=== PATIENT | male | born 1935 | race Caucasian/White ===

== ENCOUNTER → 2016-06-13 | Outpatient (CLI) | payer MEDICARE ==
[2016-06-13 09:16] LABS: Blood Urea Nitrogen 23 mg/dL (9-20); Non-African American GFR(MDRD) >60 (>60 ml/min/1.73 sqM)
--- NOTE | 2016-06-13 09:59 | CT ---
EXAMINATION TYPE: CT chest w con DATE OF EXAM: 06/13/2016 9:34 AM COMPARISON: 11/17/2015 HISTORY: 81-year-old male follow-up Lung CA TECHNIQUE: Contiguous axial scanning of the chest after the administration of 100 ml mL of Omnipaque 300. Coronal/sagittal reconstructions performed. CT DLP: 610mGycm. Automatic exposure control utilized for a dose reduction. FINDINGS: Heart is normal size without pericardial effusion. Coronary vessel calcifications are present in samara rkable for coronary artery disease. Ascending aorta measures at the upper limits of normal in caliber at 3.6 cm. Ectasia of the upper trupti cending thoracic aorta as well as 3.1 cm. Moderate atherosclerotic arch calcifications with conventio nal arch vessel branching anatomy. Scattered nonenlarged mediastinal lymph nodes are unchanged. No thoracic lymphadenopathy by CT size c riteria. Evaluation of the lungs shows prior left upper lobectomy. Some minimal atelectasis or scarring at the medial right middle lobe is unchanged. No consolidation or pleural effusion. Small hiatal hernia. Heterogeneous low-density mass within the left adrenal gland measures 3.8 cm an d is not significantly changed. Partially visualized cyst medial left kidney measures 3.1 cm, also no t significantly changed. Tiny hilar splenule and moderate stool burden. Bones: Moderate endplate spondylosis mid to lower thoracic spine. Old healed fracture deformity left lateral third rib. No osseous destructive process. IMPRESSION: 1. Status post left upper lobectomy. No evidence for recurrent or metastatic disease. 2. A 3.8 cm left adrenal gland mass is stable. Stability suggests an adrenal adenoma.
== END | disposition home or self-care (01) ==
LOC: RADCTMAIN 08:45
PROVIDERS: ATTEND Internal Medicine Hematology & Oncology
DX: C34.90 Malignant neoplasm of unspecified part of unspecified bronchus or lung (principal); Z90.2 Acquired absence of lung [part of]
CPT/HCPCS: 82565; 84520; 71260; 36415; Q9967

== ENCOUNTER → 2016-09-18 | Outpatient (CLI) | payer MEDICARE ==
[2016-09-18 10:38] LABS: Basophils % (A) 1 %; CH 31.1; Eosinophils # (A) 0.2 k/uL (0-0.7); Eosinophils % (A) 3 %; HCT 47.5 % (39.0-53.0); HDW 2.59; HGB 15.9 gm/dL (13.0-17.5); Luc # (Auto) 0.11; Luc % (Auto) 2; Lymphocytes # (A) 1.7 k/uL (1.0-4.8); Lymphocytes % (A) 23 %; MCH 29.9 pg (25.0-35.0); MCHC 33.6 g/dL (31.0-37.0); MCV 89.2 fL (80.0-100.0); Monocytes # (A) 0.6 k/uL (0-1.0); Monocytes % (A) 8 %; Neutrophils # (A) 4.9 k/uL (1.3-7.7); Neutrophils % (A) 65 %; RBC 5.32 m/uL (4.30-5.90); RDW 12.8 % (11.5-15.5); WBC 7.5 k/uL (3.8-10.6); WBC (Perox) 7.15
[2016-09-18 10:58] LABS: ALT 31 U/L (21-72); AST 18 U/L (17-59); Alkaline Phosphatase 67 U/L (38-126); Anion Gap 9 mmol/L; Blood Urea Nitrogen 22 mg/dL (9-20); Calcium 9.3 mg/dL (8.4-10.2); Carbon Dioxide 27 mmol/L (22-30); Chloride 104 mmol/L (98-107); Cholesterol 184 mg/dL (<200); Glucose 110 mg/dL (74-99); HDL Cholesterol 60 mg/dL (40-60); Non-African American GFR(MDRD) >60 (>60 ml/min/1.73 sqM); Potassium 4.8 mmol/L (3.5-5.1); Sodium 140 mmol/L (137-145); Total Bilirubin 0.7 mg/dL (0.2-1.3); Total Protein 6.8 g/dL (6.3-8.2); Triglycerides 92 mg/dL (<150)
== END | disposition home or self-care (01) ==
LOC: LABWHC1 10:05
PROVIDERS: ATTEND Family Medicine
DX: E55.9 Vitamin D deficiency, unspecified (principal); E78.5 Hyperlipidemia, unspecified
CPT/HCPCS: 36415; 80053; 80061; 82306; 84443; 85025

== ENCOUNTER → 2016-12-26 | Outpatient (CLI) | payer MEDICARE ==
[2016-12-26 18:25] LABS: Blood Urea Nitrogen 26 mg/dL (9-20); Non-African American GFR(MDRD) >60 (>60 ml/min/1.73 sqM)
--- NOTE | 2016-12-26 22:12 | CT ---
EXAMINATION TYPE: CT abdomen pelvis w con DATE OF EXAM: 12/26/2016 COMPARISON: Prior nuclear medicine PET/CT 05/22/2015 HISTORY: History of lung cancer. Generalized abdominal pain x [address] DLP: 943.60 mGycm Automated exposure control for dose reduction was used. TECHNIQUE: Helical acquisition of images from the lung bases through the pelvis have been completed. CONTRAST: Performed with Oral Contrast and with IV Contrast, patient injected with 100 mL of Omnipaque 300. FINDINGS: LUNG BASES: No significant abnormality is appreciated. AORTA: No significant abnormality is appreciated. LIVER/GB: Liver shows low attenuation possibly due to hepatic steatosis, gallbladder is normal PANCREAS: No significant abnormality is seen. SPLEEN: No significant abnormality is seen. ADRENALS: Low dense left adrenal mass is again noted and is stable. KIDNEYS: Cortical cyst is stable kidney. REPRODUCTIVE ORGANS: Prostate is enlarged BOWEL: Some scattered diverticular change in the descending and sigmoid colon. No bowel obstruction. FREE AIR: No Free Air visible. ASCITES: None visible. PELVIC ADENOPATHY: None visualized. RETROPERITONEAL ADENOPATHY: No Retroperitoneal Adenopathy visible. URINARY BLADDER: No significant abnormality is seen. OSSEOUS STRUCTURES: No significant abnormality is seen. IMPRESSION: NO SIGNIFICANT ABNORMALITY EVIDENT TO ACCOUNT FOR PATIENT'S SYMPTOMS. ADDITIONAL NONSPECIFIC FINDINGS ABOVE.
== END | disposition home or self-care (01) ==
LOC: RADCTMAIN 17:47
PROVIDERS: ATTEND Internal Medicine Hematology & Oncology
DX: C34.90 Malignant neoplasm of unspecified part of unspecified bronchus or lung (principal); R10.32 Left lower quadrant pain
CPT/HCPCS: 82565; 84520; 74177; 36415; Q9967

== ENCOUNTER → 2017-06-26 | Outpatient (CLI) | payer MEDICARE ==
[2017-06-26 12:37] LABS: Blood Urea Nitrogen 25 mg/dL (9-20)
--- NOTE | 2017-06-26 15:55 | CT ---
EXAMINATION TYPE: CT neck chest w con DATE OF EXAM: 06/26/2017 1:23 PM COMPARISON: 06/13/2016 HISTORY: Sore neck and follow up of lung cancer CT DLP: 1607 mGycm Automated exposure control for dose reduction was used. CONTRAST: CT scan of the neck and chest were performed following with IV Contrast, patient injected with 100 mL of Omnipaque 300. Axial images are obtained, coronal and sagittal reformatted images are reviewed. FINDINGS: Lungs: Minimal left hemithorax volume loss is seen from a left upper lobectomy with surgical sutures at the mediastinal border. No new pulmonary nodules, pleural effusion, or focal consolidation is seen . Minimal bibasilar subsegmental dependent atelectasis is noted. Mediastinum: Moderate calcific atheromatous changes are seen of the thoracic aorta and coronary arter ies. Heart is not enlarged. There is no ascending or descending thoracic aortic aneurysm. Main pulmon raysa artery is within normal limits of size. No mediastinal, axillary, or internal mammary adenopathy is seen. Airway: Supraglottic and infraglottic airway are patent. Valleculae and piriform sinuses are symmetri c. True and false vocal cords are unremarkable.. Parotid/submandibular glands: No gross abnormality seen. Carotid/Vascular Structures: Minimal nonhemodynamically significant atherosclerosis and stenosis is s een of the bilateral common carotid arteries of less than 25% stenosis. No ostial stenosis is seen. C ommon carotid arteries are patent bilaterally as are the visualized portions of the internal carotid arteries. Vertebral arteries are patent and nearly codominant with the left slightly larger than the right. Other: There is generalized decreased attenuation of the hepatic parenchyma in comparison to that of the spleen suggesting mild hepatic steatosis. 3.8 cm stable left adrenal gland nodule is unchanged an d again favored to represent a benign adrenal gland adenoma. Partially visualized exophytic 3.1 cm le ft renal cyst is seen. Mild to moderate multilevel degenerative changes of the visualized thoracolumb ar spine are present. Thyroid gland is unremarkable. No supraclavicular adenopathy. Moderate multilevel degenerative disc disease is seen of the cervical spine with small posterior disc osteophyte complex versus small disc herniation at C3-C4 resulting in mild spinal canal stenosis. At C2-C3 there is mild left neural foraminal narrowing from uncovertebral hypertrophy and facet arthrop athy. At C3-C4 there is mild bilateral neural foraminal narrowing as well as at C5-C6 all due to unco vertebral hypertrophy and facet arthropathy. No evidence of acute cervical spine fracture. Although t here is prominence throughout multiple spinal levels with sclerotic foci of the mid vertebral bodies in the cervical spine and thoracic spine and the confluence of the posterior inferior vertebral vein confluence and additional sclerotic focus is seen more anteriorly at C5 on series 6 image 42 measurin g 4 mm. Is also seen in series 4 image 53. IMPRESSION: 1. Postsurgical changes of the left upper lobectomy with no evidence of recurrence or metastatic dise ase within the chest. 2. 4 mm indeterminate sclerotic focus within the C5 vertebral body for which surveillance is recommen ded. Alternatively this could be evaluated with MR with and without contrast of the cervical spine to evaluate for bone marrow replacing process with enhancement. 3. Posterior disc osteophyte complex versus small disc herniation at C3-C4 resulting in mild spinal c anal stenosis. This would also be better assessed with the above suggested MR. 4. Continued stability of the 3.8 cm left adrenal gland mass, likely representing an adrenal gland ad enoma.
== END | disposition home or self-care (01) ==
LOC: RADCTMAIN 11:45
PROVIDERS: ATTEND Internal Medicine Hematology & Oncology
DX: M54.2 Cervicalgia (principal); C34.90 Malignant neoplasm of unspecified part of unspecified bronchus or lung; Z98.890 Other specified postprocedural states
CPT/HCPCS: 70491; 71260; 82565; 84520

== ENCOUNTER → 2017-07-18 | Outpatient (CLI) | payer MEDICARE ==
--- NOTE | 2017-07-19 07:58 | MR ---
EXAMINATION TYPE: MR cervical spine wo/w con DATE OF EXAM: 07/18/2017 COMPARISON: CT neck and chest 06/26/2017 HISTORY: Lung cancer, abnormal CT TECHNIQUE: Multiplanar, multisequence images of the cervical spine were acquired utilizing 9 mL intravenous Gada vist gadolinium contrast. Diffusion weighted imaging was performed. C2-C3: No evidence for degenerative disc disease. No disc bulge/herniation or protrusion. No Canal stenosis. Foramina are patent bilaterally. C3-C4: There appears to be a central focal disc herniation at this level with moderate anterior theca l sac compression. No cord contact is evident. This is in close approximation with spinal cord. No sp inal canal stenosis present. Uncovertebral joint hypertrophy contributes to severe foraminal stenosis . C4-C5: No focal disc herniation or significant disc bulge is evident. No spinal canal stenosis presen t. Uncovertebral joint hypertrophy is moderate bilateral foraminal stenosis. C5-C6: No focal disc herniation is evident. Some left paracentral focal bulging which may extend into the foramen on the left is present. Correlate for radicular symptoms at this level. Some mild endpla te changes not excluded. No spinal canal stenosis present. Uncovertebral joint hypertrophy is present with mild foraminal narrowing. C6-C7: There is a central focal subligamentous disc herniation with mild anterior thecal sac compress ion. No cord contact is evident. Neural foramen appear patent. No spinal canal stenosis is present. C7-T1: No focal disc herniation or significant disc bulge is evident. No spinal canal stenosis presen t. Uncovertebral joint hypertrophy is present contributing to moderate bilateral foraminal stenosis. No suspicious enhancement is evident. Vertebral body alignment is normal. There is mild disc space na rrowing throughout the cervical spine. IMPRESSION: 1. Central subligamentous disc herniation C6-7 with mild anterior thecal sac compression. 2. Subligamentous disc herniation with moderate anterior thecal sac compression at C3-4. 3. Foraminal stenosis from uncovertebral joint hypertrophy greatest C3-4.
== END | disposition home or self-care (01) ==
LOC: RADMRIMAIN 15:35
PROVIDERS: ATTEND Internal Medicine Hematology & Oncology
DX: C34.90 Malignant neoplasm of unspecified part of unspecified bronchus or lung (principal); M48.02 Spinal stenosis, cervical region; M50.21 Other cervical disc displacement, high cervical region
CPT/HCPCS: 72156; A9581

== ENCOUNTER → 2018-06-13 | Outpatient (CLI) | payer MEDICARE ==
[2018-06-13 12:16] LABS: Blood Urea Nitrogen 31 mg/dL (9-20)
--- NOTE | 2018-06-13 15:03 | CT ---
EXAMINATION TYPE: CT ChestAbdPelvis w con, CT soft tissue neck w con DATE OF EXAM: 06/13/2018 COMPARISON: CT neck and chest 06/26/2017, abdomen pelvis CT 12/26/2016 HISTORY: Lung cancer CT DLP: 2355.0 mGycm Automated exposure control for dose reduction was used. Helical imaging through the neck, chest abdom en and pelvis. CONTRAST: CT scan of the chest, abdomen and pelvis is performed with Oral Contrast and with IV Contrast, patien t injected with 100 ml mL of Isovue 300. FINDINGS: The neck shows normal appearance, there is no evident adenopathy. Skull base is normal. Marshall ivary gland show symmetric appearance. Atheromatous changes are present within the carotid arteries. Supraclavicular locations are unremarkable. LUNGS: The lungs are grossly clear, there is no concerning parenchymal mass or nodule identified. T here is no pleural effusion or pneumothorax seen. The tracheobronchial tree is patent. MEDIASTINUM: There are no greater than 1 cm hilar or mediastinal lymph nodes. No pericardial effusi on is seen. AORTA: No significant abnormality is seen. OTHER: There are coronary artery calcifications.. LIVER/GB: Liver shows low attenuation. Gallbladder is normal. PANCREAS: No significant abnormality is seen. SPLEEN: No significant abnormality is seen. ADRENALS: Left adrenal mass measures 3.2 x 4 x 3.5 cm, right adrenal gland is normal. KIDNEYS: No significant abnormality is seen. REPRODUCTIVE ORGANS: Prostate is enlarged and shows associated calcification. BOWEL: Diverticular changes associated with the colon. Small lipoma associated with the small bowel, axial image 70 FREE AIR: No Free Air visible. ASCITES: None seen. RETROPERITONEAL ADENOPATHY: No retroperitoneal adenopathy is seen. LYMPH NODES: No greater than 1 cm abdominal or pelvic lymph nodes are appreciated. URINARY BLADDER: No significant abnormality is seen. PELVIC ADENOPATHY: None visualized. OSSEOUS STRUCTURES: No significant interval change is seen. IMPRESSION: Essentially stable exam.
== END | disposition home or self-care (01) ==
LOC: RADCTMAIN 11:31 → EDSTATUS 13:00
PROVIDERS: ATTEND Internal Medicine Hematology & Oncology
DX: C34.90 Malignant neoplasm of unspecified part of unspecified bronchus or lung (principal)
CPT/HCPCS: 82565; 84520; 70491; 71260; 74177; 36415; Q9967

== ENCOUNTER → 2018-08-21 | Outpatient (CLI) | payer MEDICARE ==
--- NOTE | 2018-08-22 07:33 | ECHOF ---
Referral Reason:R94.31 abnormal EKG MEASUREMENTS -------- HEIGHT: 167.6 cm WEIGHT: 86.2 kg BP: IVSd: 1.4 cm (0.6 - 1.1) LVIDd: 4.0 cm (3.9 - 5.3) LVPWd: 1.3 cm (0.6 - 1.1) IVSs: 1.8 cm LVIDs: 2.3 cm LVPWs: 1.9 cm Ao Diam: 3.5 cm (2.0 - 3.7) AV Cusp: 2.0 cm (1.5 - 2.6) LA Diam: 3.6 cm (2.7 - 3.8) MV EXCURSION: 15.618 mm (> 18.000) MV EF SLOPE: 47 mm/s (70 - 150) EPSS: 0.6 cm MV E Rbobie: 0.59 m/s MV DecT: 365 ms MV A Robbie: 1.06 m/s MV E/A Ratio: 0.55 RAP: 5.00 mmHg RVSP: 12.51 mmHg FINDINGS -------- Sinus rhythm. This was a technically good study. The left ventricular size is normal. There is moderate concentric left ventricular hypertrophy. O verall left ventricular systolic function is normal with, an EF between 55 - 60 %. The right ventricle is normal in size. The left atrial size is normal. The right atrial size is normal. The aortic valve is trileaflet and appears structurally normal. There is trace mitral regurgitation. Trace tricuspid regurgitation present. The right ventricular systolic pressure, as measured by Dopp ler, is 12.51mmHg. There is no pulmonic regurgitation present. The aortic root size is normal. Normal inferior vena cava with normal inspiratory collapse consistent with estimated right atrial pre ssure of 5 mmHg. There is no pericardial effusion. CONCLUSIONS -------- 1. Sinus rhythm. 2. This was a technically good study. 3. The left ventricular size is normal. 4. There is moderate concentric left ventricular hypertrophy. 5. Overall left ventricular systolic function is normal with, an EF between 55 - 60 %. 6. The right ventricle is normal in size. 7. The left atrial size is normal. 8. The right atrial size is normal. 9. The aortic valve is trileaflet and appears structurally normal. 10. There is trace mitral regurgitation. 11. Trace tricuspid regurgitation present. 12. The right ventricular systolic pressure, as measured by Doppler, is 12.51mmHg. 13. There is no pulmonic regurgitation present. 14. The aortic root size is normal. 15. Normal inferior vena cava with normal inspiratory collapse consistent with estimated right atrial pressure of 5 mmHg. 16. There is no pericardial effusion. ADMISSIONS SPECIALIST: Eve Serna RDCS
== END | disposition home or self-care (01) ==
LOC: RADECHMAIN 12:51
PROVIDERS: ATTEND Family Medicine
DX: I51.7 Cardiomegaly (principal)
CPT/HCPCS: 93306

== ENCOUNTER → 2018-09-23 | Outpatient (CLI) | payer MEDICARE ==
[2018-09-23 17:07] LABS: T4, Free (Free Thyroxine) 1.1 ng/dL (0.80-1.80)
== END | disposition home or self-care (01) ==
LOC: LABWHC1 09:56
PROVIDERS: ATTEND Nurse Practitioner
DX: E03.9 Hypothyroidism, unspecified (principal)
CPT/HCPCS: 36415; 84439; 84443

== ENCOUNTER → 2019-04-16 | Outpatient (CLI) | payer MEDICARE ==
[2019-04-16 17:03] LABS: Chol/HDL Ratio 3.41; LDL Cholesterol,Calculated 114.6 mg/dL (0.0-131.0); VLDL Calculation 15.4 mg/dL (5.00-40.00)
== END | disposition home or self-care (01) ==
LOC: LABWHC1 09:44
PROVIDERS: ATTEND Nurse Practitioner
DX: E78.2 Mixed hyperlipidemia (principal)
CPT/HCPCS: 36415; 80061; 82550; 84450; 84460

== ENCOUNTER → 2019-07-07 | Outpatient (CLI) | payer MEDICARE ==
[2019-07-07 13:11] LABS: African American GFR (CKD) >90 (>60 ml/min/1.73 sqM); Blood Urea Nitrogen 23 mg/dL (9-20); Non-African American GFR(CKD) 86 (>60 ml/min/1.73 sqM)
--- NOTE | 2019-07-07 14:58 | CT ---
EXAMINATION TYPE: CT soft tissue neck w con DATE OF EXAM: 07/07/2019 HISTORY: lung CA follow up COMPARISON: Prior neck CT June 13, 2018 and older studies. Prior PET/CT May 22, 2015. CT DLP: 594.12 mGycm. Automated Exposure Control for Dose Reduction was Utilized. TECHNIQUE: CT scan of the neck is performed with IV Contrast, patient injected with 100 mL of Isovue 300, axial images are obtained, coronal and sagittal reformatted images are reviewed. FINDINGS: Airway: No gross abnormality seen. Parotid/submandibular glands: No gross abnormality seen. Carotid/Vascular Structures: [id number]-[id number]-[id number] plaque at carotid bulb level extending proximal interna l carotid arteries without significant stenosis . Osseous Structures: Spine is straightened with moderate disc space narrowing and spurring C5-C6 and C 6-C7 levels Other: No greater than 1 cm neck adenopathy. IMPRESSION: No new suspicious adenopathy to suggest metastatic disease. No significant change from m ost recent prior CT.
--- NOTE | 2019-07-07 15:06 | CT ---
EXAMINATION TYPE: CT ChestAbdPelvis w con DATE OF EXAM: 07/07/2019 COMPARISON: CT June 13, 2018 and older CTs. HISTORY: Lung CA follow up. Original cancer diagnosed 2015 treated surgically and with chemotherapy. CT DLP: 1786.88 mGycm. Automated Exposure Control for Dose Reduction was Utilized. CONTRAST: CT scan of the thorax, abdomen and pelvis is performed with IV Contrast, patient injected with 100 mL of Isovue 300. FINDINGS: LUNGS: Low lung volumes with inferior anterior an additional left basilar linear scarring and atelect asis is redemonstrated. No suspicious new nodules or masses. No pleural effusion or pneumothorax. MEDIASTINUM: There are no greater than 1 cm hilar or mediastinal lymph nodes. No cardiomegaly or pe ricardial effusion is seen. Coronary artery calcification and/or stents redemonstrated which is note d marked of underlying coronary artery disease. LIVER/GB: No significant abnormality is appreciated. PANCREAS: No significant abnormality is seen. SPLEEN: No significant abnormality is seen. ADRENALS: Stable nonspecific left adrenal mass measuring 3.6 x 2.8 cm image 56 not significantly parra ged in size from prior CTs back through May 26, 2014. KIDNEYS: Symmetric cortical medullary uptake and excretion with simple appearing thin-walled roughly 3.7 cm cyst medially upper pole level left kidney redemonstrated image 29 series 14. BOWEL: The oral contrast does not reach distal ileum. No suspicious small or large bowel dilatation. Some diverticula in the left and proximal sigmoid colon without CT evidence for acute diverticulitis. . GENITAL ORGANS: Heterogeneous enlarged prostate gland consistent with BPH bulging on bladder base. Sc attered adjacent pelvic phleboliths greater on the right side. LYMPH NODES: No greater than 1cm abdominal or pelvic lymph nodes are appreciated. OSSEOUS STRUCTURES: Moderate narrowing and spurring of both hip joints. Multilevel spurring and disc space narrowing of the thoracolumbar spine with slight scoliotic curvature. Facet arthropathy lower l umbar levels. OTHER: Moderate calcified plaque of the abdominal aorta extends into iliac branch vessels. IMPRESSION: No suspicious new mass or adenopathy to suggest active neoplastic recurrence.
== END | disposition home or self-care (01) ==
LOC: RADCTMAIN 12:36
PROVIDERS: ATTEND Internal Medicine Hematology & Oncology
DX: C34.90 Malignant neoplasm of unspecified part of unspecified bronchus or lung (principal)
CPT/HCPCS: 82565; 84520; 70491; 71260; 74177; 36415; Q9967

== ENCOUNTER 2020-05-31 12:09 | Observation (INO) | payer MEDICARE ==
--- NOTE | 2020-05-31 12:53 | ED ---
General Adult HPI - General Chief complaint: Dizziness Stated complaint: Lightheadedness Time Seen by Provider: 05/31/20 12:39 Source: patient, family, RN notes reviewed Mode of arrival: wheelchair Limitations: no limitations - History of Present Illness Initial comments: Patient is a pleasant 85-year-old male presenting to the emergency department with lightheadedness. Symptoms have been occurring for the past week or 2. Patient did see his primary care physician today and had an EKG and was advised to come to emergency department. Patient states symptoms are occasionally positional. Patient does somewhat occasional exertional dyspnea otherwise no dyspnea. No chest pain. No palpitations. No history of chronic similar symptoms. No weakness or confusion. - Related Data Home Medications Medication Instructions Recorded Confirmed Aspirin 325 mg PO DAILY 07/08/14 07/08/14 Cholecalciferol [Vitamin D3] 1,000 unit PO DAILY 07/08/14 07/15/14 Pravastatin Sodium [Pravachol] 40 mg PO DAILY 07/08/14 07/15/14 Vit A/Vit C/Vit E/Zinc/Copper 1 cap PO DAILY 07/08/14 07/15/14 [ICAPS SOFTGEL] Allergies Allergy/AdvReac Type Severity Reaction Status Date / Time No Known Allergies Allergy Verified 05/31/20 12:17 Review of Systems ROS Statement: Those systems with pertinent positive or pertinent negative responses have been documented in the HPI. ROS Other: All systems not noted in ROS Statement are negative. Constitutional: Denies: fever Eyes: Denies: eye pain ENT: Denies: ear pain Respiratory: Reports: as per HPI. Denies: cough Cardiovascular: Denies: chest pain Endocrine: Denies: fatigue Genitourinary: Denies: dysuria Musculoskeletal: Denies: back pain Skin: Denies: rash Neurological: Reports: as per HPI. Denies: headache Past Medical History Past Medical History: Cancer Additional Past Medical History / Comment(s): Collapsed Lung, Mass in Lung, lung cancer History of Any Multi-Drug Resistant Organisms: None Reported Past Surgical History: No Surgical Hx Reported Additional Past Surgical History / Comment(s): Hemhorriodectomy, lung sugery Past Psychological History: No Psychological Hx Reported Smoking Status: Former smoker Past Alcohol Use History: Occasional Past Drug Use History: None Reported - Past Family History Mother Family Medical History: Cancer Additional Family Medical History / Comment(s): Lung cancer General Exam Limitations: no limitations General appearance: alert, in no apparent distress Head exam: Present: normocephalic Eye exam: Present: normal appearance, PERRL, EOMI ENT exam: Present: normal exam Neck exam: Present: normal inspection Respiratory exam: Present: normal lung sounds bilaterally Cardiovascular Exam: Present: regular rate, normal rhythm GI/Abdominal exam: Present: soft. Absent: tenderness Extremities exam: Present: normal inspection. Absent: pedal edema, calf tenderness Neurological exam: Present: alert, oriented X3, CN II-XII intact. Absent: motor sensory deficit Expanded Neurological exam: Present: protecting the airway Patient oriented to: Present: person, place, time Speech: Present: fluid speech Cranial nerves: EOM's Intact: Normal Motor strength exam: RUE: 5, LUE: 5, RLE: 5, LLE: 5 Eye Response: (4) open spontaneously Motor Response: (6) obeys commands Verbal Response: (5) oriented Psychiatric exam: Present: normal affect, normal mood Skin exam: Present: normal color Course Vital Signs 05/31/20 12:17 Temperature 97.7 F Pulse Rate 63 Respiratory 18 Rate Blood Pressure 166/73 O2 Sat by Pulse 94 L Oximetry EKG Findings - EKG Comments: EKG Findings:: Sinus bradycardia with 3-59. For screening AV block AR of 210. QRS 142. QT 454. QTC 449. Left axis. Right bundle branch block. Inferior Q waves. No acute ST change. Medical Decision Making - Medical Decision Making Patient reevaluated and updated. Case discussed in detail with Dr. Tenorio, who will admit covering for Dr. Boykin. - Lab Data Result diagrams: 05/31/20 13:02 05/31/20 13:02 Lab Results 05/31/20 05/31/20 05/31/20 Range/Units 13:02 13:02 13:02 WBC 8.4 (3.8-10.6) k/uL RBC 5.16 (4.30-5.90) m/uL Hgb 15.8 (13.0-17.5) gm/dL Hct 45.9 (39.0-53.0) % MCV 89.1 (80.0-100.0) fL MCH 30.7 (25.0-35.0) pg MCHC 34.5 (31.0-37.0) g/dL RDW 12.7 (11.5-15.5) % Plt Count 199 (150-450) k/uL MPV 7.5 Neutrophils % 72 % Lymphocytes % 17 % Monocytes % 7 % Eosinophils % 1 % Basophils % 1 % Neutrophils # 6.1 (1.3-7.7) k/uL Lymphocytes # 1.4 (1.0-4.8) k/uL Monocytes # 0.6 (0-1.0) k/uL Eosinophils # 0.1 (0-0.7) k/uL Basophils # 0.1 (0-0.2) k/uL PT 10.2 (9.0-12.0) sec INR 0.9 (<1.2) APTT 23.4 (22.0-30.0) sec Sodium 139 (137-145) mmol/L Potassium 4.7 (3.5-5.1) mmol/L Chloride 105 (98-107) mmol/L Carbon Dioxide 25 (22-30) mmol/L Anion Gap 9 mmol/L BUN 25 H (9-20) mg/dL Creatinine 0.56 L (0.66-1.25) mg/dL Est GFR (CKD-EPI)AfAm >90 (>60 ml/min/1.73 sqM) Est GFR (CKD-EPI)NonAf >90 (>60 ml/min/1.73 sqM) Glucose 109 H (74-99) mg/dL Calcium 9.2 (8.4-10.2) mg/dL Magnesium 2.0 (1.6-2.3) mg/dL Total Bilirubin 0.6 (0.2-1.3) mg/dL AST 21 (17-59) U/L ALT 20 (4-49) U/L Alkaline Phosphatase 62 (38-126) U/L Troponin I (0.000-0.034) ng/mL Total Protein 6.8 (6.3-8.2) g/dL Albumin 4.1 (3.5-5.0) g/dL TSH 1.990 (0.465-4.680) mIU/L Free T4 1.00 (0.78-2.19) ng/dL Free T3 pg/mL 3.0 (2.8-5.3) pg/ml 05/31/20 Range/Units 13:02 WBC (3.8-10.6) k/uL RBC (4.30-5.90) m/uL Hgb (13.0-17.5) gm/dL Hct (39.0-53.0) % MCV (80.0-100.0) fL MCH (25.0-35.0) pg MCHC (31.0-37.0) g/dL RDW (11.5-15.5) % Plt Count (150-450) k/uL MPV Neutrophils % % Lymphocytes % % Monocytes % % Eosinophils % % Basophils % % Neutrophils # (1.3-7.7) k/uL Lymphocytes # (1.0-4.8) k/uL Monocytes # (0-1.0) k/uL Eosinophils # (0-0.7) k/uL Basophils # (0-0.2) k/uL PT (9.0-12.0) sec INR (<1.2) APTT (22.0-30.0) sec Sodium (137-145) mmol/L Potassium (3.5-5.1) mmol/L Chloride (98-107) mmol/L Carbon Dioxide (22-30) mmol/L Anion Gap mmol/L BUN (9-20) mg/dL Creatinine (0.66-1.25) mg/dL Est GFR (CKD-EPI)AfAm (>60 ml/min/1.73 sqM) Est GFR (CKD-EPI)NonAf (>60 ml/min/1.73 sqM) Glucose (74-99) mg/dL Calcium (8.4-10.2) mg/dL Magnesium (1.6-2.3) mg/dL Total Bilirubin (0.2-1.3) mg/dL AST (17-59) U/L ALT (4-49) U/L Alkaline Phosphatase (38-126) U/L Troponin I <0.012 (0.000-0.034) ng/mL Total Protein (6.3-8.2) g/dL Albumin (3.5-5.0) g/dL TSH (0.465-4.680) mIU/L Free T4 (0.78-2.19) ng/dL Free T3 pg/mL (2.8-5.3) pg/ml - Radiology Data Radiology results: report reviewed (Computed tomography scan of the brain reveals no acute process), image reviewed (Chest x-ray shows no acute process) Disposition Clinical Impression: Dizziness, EKG abnormalities Disposition: ADMITTED IP TO THIS HOSP Is patient prescribed a controlled substance at d/c from ED?: No Referrals: Carlos Stafford MD [Primary Care Provider] - 1-2 days Decision Time: 14:15
[2020-05-31 13:23] LABS: Basophils # (A) 0.1 k/uL (0-0.2); Basophils % (A) 1 %; Eosinophils # (A) 0.1 k/uL (0-0.7); Eosinophils % (A) 1 %; HCT 45.9 % (39.0-53.0); HGB 15.8 gm/dL (13.0-17.5); Lymphocytes # (A) 1.4 k/uL (1.0-4.8); Lymphocytes % (A) 17 %; MCH 30.7 pg (25.0-35.0); MCHC 34.5 g/dL (31.0-37.0); MCV 89.1 fL (80.0-100.0); Mean Platelet Volume 7.5; Monocytes # (A) 0.6 k/uL (0-1.0); Monocytes % (A) 7 %; Neutrophils # (A) 6.1 k/uL (1.3-7.7); Neutrophils % (A) 72 %; Platelet Count 199 k/uL (150-450); RBC 5.16 m/uL (4.30-5.90); RDW 12.7 % (11.5-15.5); WBC 8.4 k/uL (3.8-10.6)
--- NOTE | 2020-05-31 13:39 | XR ---
EXAMINATION TYPE: XR chest 2V DATE OF EXAM: 05/31/2020 COMPARISON: Prior chest x-ray 04/13/2015, chest CT 07/07/2019 HISTORY: Dysrhythmia TECHNIQUE: Frontal and lateral views of the chest are obtained. FINDINGS: There is no focal air space opacity, pleural effusion, or pneumothorax seen. The cardiac silhouette size is within normal limits. There are overlying leads. There is persistent blunting of the left costophrenic angle. Aorta is dense. Arthropathy present at the acromioclavicular joints. The re is a spinal curvature. The osseous structures are intact. IMPRESSION: No acute cardiopulmonary process.
[2020-05-31 13:40] LABS: INR 0.9 (<1.2); Partial Thromboplastin Time 23.4 sec (22.0-30.0); Prothrombin Time 10.2 sec (9.0-12.0)
--- NOTE | 2020-05-31 13:43 | CT ---
EXAMINATION TYPE: CT brain wo con DATE OF EXAM: 05/31/2020 COMPARISON: None HISTORY: Dizziness CT DLP: 1076.4 mGycm Automated exposure control for dose reduction was used. Helical imaging through the brain. FINDINGS: Cerebrovascular calcifications are present. There is no hemorrhage or hydrocephalus. Calvarium is int act. Mucoperiosteal thickening present within the maxillary sinuses. There is cortical atrophy. Periv entricular white matter shows patchy low attenuation. IMPRESSION: MILD SINUS DISEASE. NO ACUTE BRAIN ABNORMALITY. CONSIDER MRI INDICATED. AGE-RELATED ATROPHY AND CH RONIC SMALL VESSEL ISCHEMIA.
[2020-05-31 13:45] LABS: ALT 20 U/L (4-49); AST 21 U/L (17-59); African American GFR (CKD) >90 (>60 ml/min/1.73 sqM); Albumin 4.1 g/dL (3.5-5.0); Alkaline Phosphatase 62 U/L (38-126); Anion Gap 9 mmol/L; Blood Urea Nitrogen 25 mg/dL (9-20); Calcium 9.2 mg/dL (8.4-10.2); Carbon Dioxide 25 mmol/L (22-30); Chloride 105 mmol/L (98-107); Glucose 109 mg/dL (74-99); Non-African American GFR(CKD) >90 (>60 ml/min/1.73 sqM); Potassium 4.7 mmol/L (3.5-5.1); Sodium 139 mmol/L (137-145); Total Bilirubin 0.6 mg/dL (0.2-1.3); Total Protein 6.8 g/dL (6.3-8.2)
[2020-05-31] MEDS ORDERED: ASPIRIN 81 MG PO STA (14:15)
[2020-05-31] MEDS ORDERED: MECLIZINE 25 MG TAB PO PRN (14:17)
[2020-05-31] MEDS: SODIUM CHLORIDE 0.9% 1,000 ML IV SCH (16:06)
--- NOTE | 2020-05-31 18:09 | P.CNNES ---
History of Present Illness Consult date: 05/31/20 Requesting physician: Maximo Naidu Reason for Consult: Dizziness History of Present Illness: Patient is a 85-year-old male came to the hospital early this morning shortly after midnight for dizziness/lightheadedness. Patient states that he has been feeling dizzy off and on for the past 2-3 weeks. It's occurring off and on. It is not really bed, no vertigo, only lightheadedness. It mainly occurs when he bends over and gets up, feels dizzy. It happens sometimes, not all the times. He went for yearly checkup with his primary physician, an EKG was performed, which showed some abnormality therefore he was referred for further evaluation. Patient denies any dizziness when he rolls over in the bed. Denies any focal symptoms whatsoever, like diplopia, slurred speech, focal numbness, tingling or weakness. Vital signs on arrival blood pressure 166/73, pulse is 63, temperature 97.7. Chest x-ray showed no acute cardiopulmonary process. CT head showed mild sinus disease. No acute brain abnormality. Consider MRI as indicated. Age-related atrophy and chronic small vessel ischemia. EKG shows sinus bradycardia with first-degree AV block. Left axis deviation. Right bundle-branch block. Patient had a previous MRI of the cervical spine 07/19/2017, which revealed central subligamentous disc herniation C6 7 with mild anterior thecal sac compression. Subligamentous disc herniation with moderate anterior thecal sac compression at C3 4. No significant spinal canal stenosis. Patient's blood test shows normal CBC, PT/PTT, Chem-20 and thyroid functions. Patient takes Flomax, Pravachol 40 mg, levothyroxine, vitamin D. Patient denies hypertension or diabetes. He has smoked 1 pack per day for 20 years, quit 35 years ago. Patient has history of lung cancer, which was treated with lobectomy 6 years ago. Review of Systems Patient denies any weight loss, fever or chills. Denies any recent flu or cold. Patient does have chronic hearing loss. Patient states he has chronic sinus drainage almost every day for years. Denies any hoarseness, sore throat, dysphagia. Denies any chest pain, wheezing, abdominal pain, nausea vomiting diarrhea. He does have some shortness of breath. Denies any loss of control of urine, seizures. Denies any significant arthritis. All other review of systems unremarkable. Past Medical History Past Medical History: Cancer Additional Past Medical History / Comment(s): Collapsed Lung, Mass in Lung, lung cancer History of Any Multi-Drug Resistant Organisms: None Reported Past Surgical History: No Surgical Hx Reported Additional Past Surgical History / Comment(s): Hemhorriodectomy, lung sugery Past Psychological History: No Psychological Hx Reported Smoking Status: Former smoker Past Alcohol Use History: Occasional Past Drug Use History: None Reported - Past Family History Mother Family Medical History: Cancer Additional Family Medical History / Comment(s): Lung cancer Medications and Allergies Home Medications Medication Instructions Recorded Confirmed Type Ascorbic Acid [Vitamin C] 500 mg PO DAILY 05/31/20 05/31/20 History Cholecalciferol [Vitamin D3 (25 25 mcg PO DAILY 05/31/20 05/31/20 History Mcg = 1000 Iu)] Levothyroxine Sodium [Synthroid] 50 mcg PO DAILY 05/31/20 05/31/20 History Pravastatin Sodium [Pravachol] 40 mg PO DAILY 05/31/20 05/31/20 History Tamsulosin HCl [Flomax] 0.4 mg PO DAILY 05/31/20 05/31/20 History Allergies Allergy/AdvReac Type Severity Reaction Status Date / Time No Known Allergies Allergy Verified 05/31/20 15:13 Physical Examination - Vital Signs Vital Signs: Vital Signs Temp Pulse Resp BP Pulse Ox 05/31/20 16:09 78 16 105/69 98 05/31/20 12:17 97.7 F 63 18 166/73 94 L Intake and Output 05/31/20 05/31/20 05/31/20 06:59 14:59 22:59 Other: Weight 87.997 kg On examination patient is an elderly male, very pleasant, in no acute distress. Patient is alert and awake oriented to time place and person. Speech and language functions are normal. Attention, concentration and fund of knowledge is adequate. On cranial nerve examination pupils are round, small about 3 mm and reactive to light to 2 mm, visual bradley are full on confrontation, extraocular muscles are intact with no nystagmus. Face is symmetric, tongue protrudes to the midline. Palatal elevation and sensation normal, hearing is moderately decreased for routine conversation, severely decreased for finger rubbing. Shoulder shrug normal. Facial sensations normal. On muscle strength testing there is no pronator drift and the strength is normal in arms and legs distally and proximally. Deep tendon reflexes are diminished, plantars downgoing. Sensory touch is equal. No sensory neglect on double simultaneous stimulation. No ataxia for [id number] testing, tone and bulk of muscles and gait is normal. On general examination there is no obvious bruit, S1 and S2 was audible. Mild murmur was heard. Chest is clear. Abdomen soft and nontender. Peripheral pulses present. Results - Laboratory Findings CBC and BMP: 05/31/20 13:02 05/31/20 13:02 Abnormal Lab Findings: Abnormal Labs 05/31/20 13:02 BUN 25 H Creatinine 0.56 L Glucose 109 H Assessment and Plan Assessment: * Dizziness, lightheadedness, mainly noticeable when bending down, and getting up. Most likely peripheral, possible BPPV. * Moderate hearing loss * History of lung cancer * X tobacco use Plan: * Carotid Doppler. * B12, folate. Thyroid functions are normal. * Consider ENT evaluation as an outpatient, to rule out BPPV. * Neurologically otherwise clear.
[2020-06-01] MEDS: SODIUM CHLORIDE 0.9% 1,000 ML IV SCH ×2 (00:12→16:43)
[2020-06-01 00:27] VITALS: RESP 16
--- NOTE | 2020-06-01 01:29 | US ---
EXAMINATION TYPE: US carotid duplex BILAT DATE OF EXAM: 06/01/2020 COMPARISON: CT Brain. CLINICAL HISTORY: Dizziness, lightheadedness. Dizziness and lightheadedness per order. EXAM MEASUREMENTS: RIGHT: Peak Systolic Velocity (PSV) cm/sec ----- Right CCA: 77.3 ----- Right ICA: 88.3 ----- Right ECA: 90.3 ICA/CCA ratio: 1.1 RIGHT: End Diastole cm/sec ----- Right CCA: 15.7 ----- Right ICA: 16.8 ----- Right ECA: 0.0 LEFT: Peak Systolic Velocity (PSV) cm/sec ----- Left CCA: 82.8 ----- Left ICA: 79.5 ----- Left ECA: 89.4 ICA/CCA ratio: 1.0 LEFT: End Diastole cm/sec ----- Left CCA: 14.6 ----- Left ICA: 17.9 ----- Left ECA: 0.0 VERTEBRALS (direction of flow): Right Vertebral: Antegrade Left Vertebral: Antegrade Rhythm: Normal Intimal thickening seen bilaterally. Plaque seen right bulb, right proximal ICA, and left bulb. No el evated velocities at this time. IMPRESSION: There is antegrade flow in the vertebral arteries. The images and measurements suggest 30-40% stenosi s in both internal carotid arteries. Criteria for Assigning % of Stenosis / Diameter reduction (Estimation based on the indirect measurements of the internal carotid artery velocities (ICA PSV). 1. Normal (no stenosis)=ICA PSV < 125 cm/s: ratio < 2.0: ICA EDV<40 cm/s. 2. Less than 50% stenosis=ICA PSV < 125 cm/s: ratio < 2.0: ICA EDV<40 cm/s. 3. 50 to 69% stenosis=ICA PSV of 125 to 230 cm/s: ration 2.0 ? 4.0: ICA EDV 40-100 cm/s. 4. Greater than 70% stenosis to near occlusion= ICA PSV > 230 cm/s: ratio > 4.0: ICA EDV > 100 cm/s. 5. Near occlusion= ICA PSV velocities may be low or undetectable: variable ratio and ICA EDV. 6. Total occlusion=unable to detect flow.
[2020-06-01 03:07] LABS: Cholesterol 205 mg/dL (<200); HDL Cholesterol 55 mg/dL (40-60); LDL Cholesterol,Calculated 129 mg/dL (0-99); Triglycerides 104 mg/dL (<150)
[2020-06-01] MEDS ORDERED: ASPIRIN 325 MG TAB PO SCH (09:00)
--- NOTE | 2020-06-01 10:57 | P.CRDCN ---
History of Present Illness Consult date: 06/01/20 History of present illness: CHIEF COMPLAINT: Dizziness HISTORY OF PRESENT ILLNESS: This is a 85-year-old male with a past medical history significant for hyperlipidemia, lung cancer with resection, and former nicotine dependence. Patient follows in the office with Dr. Hough. We have been asked to see the patient in consultation for dizziness and abnormal EKG. Patient examined this morning at the bedside. Patient states he has been feeling dizzy for the past 2-3 months. He states he notices the dizziness most often when he is bending over to do something and then when he stands up. He also notices it when he is getting out of bed. He denies any dizziness at rest. Patient went to see his primary care physician yesterday who did an EKG and instructed him to go to the emergency room. Patient denies any chest pain or pressure. He denies shortness of breath. DIAGNOSTICS: EKG reveals sinus bradycardia with first-degree AV block. Left axis deviation. Right bundle branch block. Chest xray no acute process Laboratory data: WBC 8.4. Hemoglobin 15.8. Platelet count 199. Sodium 139. P otassium 4.7. BUN 25. Creatinine 0.56. Magnesium 2.0. Troponin negative 3. Current home cardiac medications include pravastatin 40 mg daily Stress test completed in 2019 was negative for ischemia Echocardiogram completed in 2019 revealed ejection fraction 55-60%, trace mitral regurgitation and trace tricuspid regurgitation REVIEW OF SYSTEMS: At the time of my exam: CONSTITUTIONAL: Denies fever or chills. HEENT: Denies blurred vision, vision changes, or eye pain. Denies hemoptysis CARDIOVASCULAR: Denies chest pain, orthopnea, PND or palpitations RESPIRATORY: No shortness of breath. GASTROINTESTINAL: Denies abdominal pain. Denies nausea or vomiting. HEMATOLOGIC: Denies bleeding disorders. GENITOURINARY: Denies any blood in urine. SKIN: Denies pruitis. Denies rash. PHYSICAL EXAM: VITAL SIGNS: Reviewed. GENERAL: Well-developed in no acute distress. HEENT: Head is normocephalic. Pupils are equal, round. Sclerae anicteric. Mucous membranes of the mouth are moist. Neck supple. No JVD or thyromegaly LUNGS: Respirations even and unlabored. Lungs essentially clear to auscultation bilaterally. HEART: Regular rate and rhythm. S1 and S2 heard. ABDOMEN: Soft. Nondistended. Nontender. EXTREMITIES: Normal range of motion. No clubbing or cyanosis. Peripheral pulses intact. No lower extremity edema NEUROLOGIC: Awake and alert. Oriented x 3. ASSESSMENT: Dizziness, postural Abnormal EKG without any acute changes compared to EKG in office from 2019 Hyperlipidemia History of lung cancer with resection Former nicotine dependence PLAN: Obtain 2-D echo to assess cardiac structure and function Patients EKG reveals tri-fascicular block. EKG from cardiology office in 2019 reviewed and is similar to current EKG with no new changes noted. Patient may be discharged home this afternoon from a cardiac perspective and follow up outpatient with Dr. Hough Nurse practitioner note has been reviewed by physician. Signing provider agrees with the documented findings, assessment, and plan of care. Past Medical History Past Medical History: Cancer Additional Past Medical History / Comment(s): Collapsed Lung, Mass in Lung, lung cancer History of Any Multi-Drug Resistant Organisms: None Reported Past Surgical History: No Surgical Hx Reported Additional Past Surgical History / Comment(s): Hemhorriodectomy, lung sugery Past Psychological History: No Psychological Hx Reported Smoking Status: Former smoker Past Alcohol Use History: Occasional Past Drug Use History: None Reported - Past Family History Mother Family Medical History: Cancer Additional Family Medical History / Comment(s): Lung cancer Medications and Allergies Home Medications Medication Instructions Recorded Confirmed Type Ascorbic Acid [Vitamin C] 500 mg PO DAILY 05/31/20 05/31/20 History Cholecalciferol [Vitamin D3 (25 25 mcg PO DAILY 05/31/20 05/31/20 History Mcg = 1000 Iu)] Levothyroxine Sodium [Synthroid] 50 mcg PO DAILY 05/31/20 05/31/20 History Pravastatin Sodium [Pravachol] 40 mg PO DAILY 05/31/20 05/31/20 History Tamsulosin HCl [Flomax] 0.4 mg PO DAILY 05/31/20 05/31/20 History Allergies Allergy/AdvReac Type Severity Reaction Status Date / Time No Known Allergies Allergy Verified 05/31/20 15:13 Physical Exam Vitals: Vital Signs Temp Pulse Pulse Resp BP BP Pulse Ox 06/01/20 07:59 97.5 F L 56 L 16 163/77 96 06/01/20 00:26 97.7 F 54 L 16 176/77 96 05/31/20 20:00 97.7 F 68 18 172/80 98 05/31/20 16:09 78 16 105/69 98 05/31/20 14:46 98 F 74 16 123/76 98 05/31/20 12:17 97.7 F 63 18 166/73 94 L Intake and Output 05/31/20 06/01/20 06/01/20 22:59 06:59 14:59 Intake Total 1200 Balance 1200 Intake: Intake, IV Titration 1200 Amount Sodium Chloride 0.9% 1, 1200 000 ml @ 100 mls/hr IV . Q10H [facility] Rx#:[id number] Other: # Voids 1 3 Results 05/31/20 13:02 05/31/20 13:02 Cardiac Enzymes 05/31/20 05/31/20 05/31/20 Range/Units 13:02 13:02 15:30 AST 21 (17-59) U/L Troponin I <0.012 <0.012 (0.000-0.034) ng/mL 05/31/20 Range/Units 19:30 AST (17-59) U/L Troponin I <0.012 (0.000-0.034) ng/mL Coagulation 05/31/20 Range/Units 13:02 PT 10.2 (9.0-12.0) sec APTT 23.4 (22.0-30.0) sec Lipids 05/31/20 Range/Units 13:02 Triglycerides 104 (<150) mg/dL Cholesterol 205 H (<200) mg/dL HDL Cholesterol 55 (40-60) mg/dL CBC 05/31/20 Range/Units 13:02 WBC 8.4 (3.8-10.6) k/uL RBC 5.16 (4.30-5.90) m/uL Hgb 15.8 (13.0-17.5) gm/dL Hct 45.9 (39.0-53.0) % Plt Count 199 (150-450) k/uL Comprehensive Metabolic Panel 05/31/20 Range/Units 13:02 Sodium 139 (137-145) mmol/L Potassium 4.7 (3.5-5.1) mmol/L Chloride 105 (98-107) mmol/L Carbon Dioxide 25 (22-30) mmol/L BUN 25 H (9-20) mg/dL Creatinine 0.56 L (0.66-1.25) mg/dL Glucose 109 H (74-99) mg/dL Calcium 9.2 (8.4-10.2) mg/dL AST 21 (17-59) U/L ALT 20 (4-49) U/L Alkaline Phosphatase 62 (38-126) U/L Total Protein 6.8 (6.3-8.2) g/dL Albumin 4.1 (3.5-5.0) g/dL Current Medications Generic Name Dose Route Start Last Admin Trade Name Freq PRN Reason Stop Dose Admin Aspirin 325 mg 06/01/20 09:00 06/01/20 09:46 Aspirin 325 Mg Tab PO 325 mg DAILY [facility] Administration Sodium Chloride 1,000 mls @ 100 mls/hr 05/31/20 14:15 06/01/20 00:12 Saline 0.9% IV 100 mls/hr .Q10H [facility] Administration Meclizine HCl 25 mg 05/31/20 14:17 Meclizine 25 Mg Tab PO QID PRN Vertigo Intake and Output 05/31/20 06/01/20 06/01/20 22:59 06:59 14:59 Intake Total 1200 Balance 1200 Intake: Intake, IV Titration 1200 Amount Sodium Chloride 0.9% 1, 1200 000 ml @ 100 mls/hr IV . Q10H [facility] Rx#:[id number] Other: # Voids 1 3 05/31/20 13:02 05/31/20 13:02
[2020-06-01 11:36] LABS: Folate, Serum 13.8 ng/mL
--- NOTE | 2020-06-01 11:59 | ECHOF ---
Referral Reason:LV function MEASUREMENTS -------- HEIGHT: 172.7 cm WEIGHT: 88.0 kg BP: IVSd: 1.2 cm (0.6 - 1.1) LVIDd: 4.2 cm (3.9 - 5.3) LVPWd: 1.3 cm (0.6 - 1.1) IVSs: 1.5 cm LVIDs: 3.6 cm LVPWs: 1.4 cm LAESV Index (A-L): 28.95 ml/m Ao Diam: 2.8 cm (2.0 - 3.7) AV Cusp: 1.5 cm (1.5 - 2.6) MV EXCURSION: 20.477 mm (> 18.000) MV EF SLOPE: 38 mm/s (70 - 150) EPSS: 0.6 cm MV E Robbie: 0.52 m/s MV DecT: 235 ms MV A Robbie: 0.87 m/s MV E/A Ratio: 0.60 AV maxP.95 mmHg AV meanP.03 mmHg RAP: 5.00 mmHg RVSP: 12.37 mmHg FINDINGS -------- Sinus rhythm. BBB This was a techncally difficult study with suboptimal views, , Definity utilized for enhancement of i mages. The left ventricular size is normal. There is mild concentric left ventricular hypertrophy. Overa ll left ventricular systolic function is normal with, an EF between 55 - 60 %. The right ventricle is normal in size. LA is midly dilated 29-33ml/m2. The right atrial size is normal. xx ml of Lumason was utilized for enhancement of images. There is mild aortic valve sclerosis. Peak/mean gradient across the Aortic Valve is 14.95mmHg / 8.0 3mmHg. Mild mitral annular calcification present. Mild mitral regurgitation is present. The tricuspid valve appears structurally normal. Mild tricuspid regurgitation present. Right vent ricular systolic pressure is normal at < 35 mmHg. There is no pulmonic regurgitation present. The aortic root size is normal. There is no pericardial effusion. CONCLUSIONS -------- 1. This was a techncally difficult study with suboptimal views, , Definity utilized for enhancement o f images. 2. There is mild concentric left ventricular hypertrophy. 3. Overall left ventricular systolic function is normal with, an EF between 55 - 60 %. 4. LA is midly dilated 29-33ml/m2. 5. xx ml of Lumason was utilized for enhancement of images. 6. There is mild aortic valve sclerosis. 7. Peak/mean gradient across the Aortic Valve is 14.95mmHg / 8.03mmHg. 8. Mild mitral regurgitation is present. 9. Mild tricuspid regurgitation present. 10. There is no pericardial effusion. VALVE GRINDER: Rosamaria Kang RDCS
[2020-06-01] MEDS ORDERED: RX INFO: IV CONTRAST WAS GIVEN 1 EACH MISC MISCELLANE PRN (12:58)
--- NOTE | 2020-06-01 15:15 | CT ---
EXAMINATION TYPE: CT angio chest DATE OF EXAM: 06/01/2020 COMPARISON: 07/07/2019 HISTORY: 85 year-old male shortness of breath, rule out PE TECHNIQUE: Contiguous axial scanning of the chest performed with IV Contrast, patient injected with 1 00 mL of Isovue 370. Coronal/sagittal MIP reconstructions performed. CT DLP: 411.1 mGycm Automated exposure control for dose reduction was used. FINDINGS: Heart normal size without pericardial effusion. No flattening of the interventricular septum or reflu x of contrast into the hepatic veins. Three-vessel coronary artery calcifications are present. Mildly ectatic ascending aorta 3.6 cm. Mild atherosclerotic arch calcifications. Conventional vessel branching anatomy. Large caliber to the main right and left pulmonary arteries measuring up to 2.6 and 3.0 cm, respectiv zion, suggesting underlying pulmonary arterial hypertension. Satisfactory presentation only arteries w ithout evidence for pulmonary embolus. No thoracic lymphadenopathy by CT size criteria. Mild centrilobular emphysema. Mild diffuse bronchial wall thickening. Some hazy dependent opacity in the lower lungs suggesting areas of atelectasis. Postsurgical change of this left upper lobectomy. Small hiatal hernia. Stable 4.0 cm lipid rich left adrenal adenoma. Partially visualized medial left renal cortical cyst m easuring 3.9 cm. Moderate stool burden. Bones: Moderate to advanced multilevel degenerative disc disease. [facility] within the lower thoracic spin e. IMPRESSION: 1. COPD WITH MINIMAL EMPHYSEMA. BRONCHIAL WALL THICKENING COULD REFLECT BRONCHITIS OR CHRONIC ASTHMA. 2. PULMONARY ARTERIAL HYPERTENSION WITHOUT EVIDENCE FOR PULMONARY EMBOLUS. 3. SMALL HIATAL HERNIA AND BENIGN 4.0 CM LIPID RICH LEFT ADRENAL ADENOMA. 4. CAD.
[2020-06-01] MEDS ORDERED: amLODIPine 5 MG TAB PO STA (15:51)
[2020-06-01 16:24] VITALS: PULSE 60; TEMP 97.8
--- NOTE | 2020-06-01 16:27 | P.PN ---
Subjective Progress Note Date: 06/01/20 Patient states he is feeling well. The dizziness has resolved. Patient is sitting in the recliner, having dinner. Objective - Vital Signs Vital signs: Vital Signs Temp 97.8 F 06/01/20 16:24 Pulse 60 06/01/20 16:24 Resp 16 06/01/20 16:24 BP 205/80 06/01/20 16:24 Pulse Ox 98 06/01/20 16:24 Intake & Output 05/31/20 06/01/20 06/01/20 18:59 06:59 18:59 Intake Total 1200 Balance 1200 Weight 87.997 kg Intake: Intake, IV Titration 1200 Amount Sodium Chloride 0.9% 1, 1200 000 ml @ 100 mls/hr IV . Q10H [facility] Rx#:[id number] Other: # Voids 1 3 - Exam Patient's mental status, speech and language functions are normal. Muscle strength is normal. No ataxia. Cranial nerves significant for decreased hearing. - Labs CBC & Chem 7: 05/31/20 13:02 05/31/20 13:02 Labs: Abnormal Lab Results - Last 24 Hours (Table) 05/31/20 Range/Units 13:02 Cholesterol 205 H (<200) mg/dL LDL Cholesterol, Calc 129 H (0-99) mg/dL Assessment and Plan Assessment: * Dizziness, lightheadedness, mainly noticeable when bending down, and getting up. Most likely peripheral, possible BPPV. * Moderate hearing loss * History of lung cancer * X tobacco use Plan: * Carotid Doppler showed 30-40% stenosis bilateral ICA. Antegrade flow in both vertebral arteries. * 2-D echo showed mild concentric LVH, EF is 55-60%. Left atrium is mildly dilated. * B12 430, folate 13.8. Thyroid functions are normal. * Consider ENT evaluation as an outpatient, to rule out BPPV. * Neurologically clear for discharge. Will sign off.
[2020-06-01 17:13] VITALS: BP 159/76
--- NOTE | 2020-06-01 23:28 | P.HPIM ---
History of Present Illness H&P Date: 06/01/20 Chief Complaint: He is retired History of presenting complaint: This is a very pleasant [address] lewis. Chronic stable medical conditions include BPH, hyperlipidemia, hypothyroid. Patient's had left partial pneumonectomy about 6 years ago for lung cancer. Follow-up has been on negative. Patient now presents with getting easily tired. For example carrying birdseed etc. He has to sit down. And catches his breath. Denies any swelling of the legs. No cough or sputum. No obvious chest pain or palpitation. Symptoms are not positional. The symptoms have been going on for about 2 weeks. He had gone to see his PCP. He saw some EKG changes and therefore sent him to the ER. Review of systems: GEN.: None EYES: None HEENT: Decreased hearing NECK: None RESPIRATORY: As above CARDIOVASCULAR: As above, no orthopnea GASTROINTESTINAL: None GENITOURINARY: None MUSCULOSKELETAL: Some joint pains LYMPHATICS: None HEMATOLOGICAL: None PSYCHIATRY: None NEUROLOGICAL: None Past medical history to include: Left lung cancer localized with partial pneumonectomy about 6 years ago, BPH, hyperlipidemia, hypothyroid Social history: . Does not smoke. Alcohol: Weekends. Physical examination: VITAL SIGNS: 97.7, 63, 18, 166 with 73, 94% room air GENERAL: Average built, sitting up, comfortable. EYES: Pupils equal. Conjunctiva normal. HEENT: External appearance of nose and ears normal, oral cavity grossly normal somewhat of hearing. NECK: JVD not raised; masses not palpable. HEART: First and second heart sounds are normal; no edema. LUNGS:[ Respiratory rate normal; decreased breath sounds. ABDOMEN: Soft, nontender, liver spleen not palpable, no masses palpable. PSYCH: Alert and oriented x3; mood and affect normal. NEUROLOGICAL: Cranial nerves grossly intact; no facial asymmetry, power and sensation grossly intact. LYMPHATICS: No lymph nodes palpable in the axilla and neck INVESTIGATIONS, reviewed in the clinical context: White count 8.4 hemoglobin 15.8 platelets 199 potassium 4.7 bun 25 creatinine 0.56 Troponin I 3 negative LDL 129 TSH 13.8 B12 430 EKG tracing personally reviewed by me-right bundle-branch block Computed tomography scan brain-unremarkable Chest x-ray film personally reviewed by me-possibly scarring Assessment: -Patient presents with 2 weeks of getting short winded easily tired when carrying things etc. With activity. Has to sit down. Rule out PE. Rule out underlying cardiac ischemia -BPH -Hyperlipidemia -Hypothyroid Plan: Cardiology was consulted. We'll order a computed tomography scan chest to rule out PE. 2-D echocardiogram was ordered discussed with the patient Past Medical History Past Medical History: Cancer Additional Past Medical History / Comment(s): Collapsed Lung, Mass in Lung, lung cancer History of Any Multi-Drug Resistant Organisms: None Reported Past Surgical History: No Surgical Hx Reported Additional Past Surgical History / Comment(s): Hemhorriodectomy, lung sugery Past Psychological History: No Psychological Hx Reported Smoking Status: Former smoker Past Alcohol Use History: Occasional Past Drug Use History: None Reported - Past Family History Mother Family Medical History: Cancer Additional Family Medical History / Comment(s): Lung cancer Medications and Allergies Home Medications Medication Instructions Recorded Confirmed Type Ascorbic Acid [Vitamin C] 500 mg PO DAILY 05/31/20 05/31/20 History Cholecalciferol [Vitamin D3 (25 25 mcg PO DAILY 05/31/20 05/31/20 History Mcg = 1000 Iu)] Levothyroxine Sodium [Synthroid] 50 mcg PO DAILY 05/31/20 05/31/20 History Pravastatin Sodium [Pravachol] 40 mg PO DAILY 05/31/20 05/31/20 History Tamsulosin HCl [Flomax] 0.4 mg PO DAILY 05/31/20 05/31/20 History Chlorthalidone 25 mg PO DAILY #30 tab 06/01/20 Rx amLODIPine [Norvasc] 5 mg PO DAILY #30 tab 06/01/20 Rx Allergies Allergy/AdvReac Type Severity Reaction Status Date / Time No Known Allergies Allergy Verified 05/31/20 15:13 Physical Exam Vitals: Vital Signs Temp Pulse Pulse Resp BP BP Pulse Ox 06/01/20 07:59 97.5 F L 56 L 16 163/77 96 06/01/20 00:26 97.7 F 54 L 16 176/77 96 05/31/20 20:00 97.7 F 68 18 172/80 98 05/31/20 16:09 78 16 105/69 98 05/31/20 14:46 98 F 74 16 123/76 98 05/31/20 12:17 97.7 F 63 18 166/73 94 L Intake and Output 05/31/20 06/01/20 06/01/20 22:59 06:59 14:59 Intake Total 1200 Balance 1200 Intake: Intake, IV Titration 1200 Amount Sodium Chloride 0.9% 1, 1200 000 ml @ 100 mls/hr IV . Q10H SIA Rx#:[id number] Other: # Voids 1 3 Results CBC & Chem 7: 05/31/20 13:02 05/31/20 13:02 Labs: Abnormal Lab Results - Last 24 Hours (Table) 05/31/20 05/31/20 Range/Units 13:02 13:02 BUN 25 H (9-20) mg/dL Creatinine 0.56 L (0.66-1.25) mg/dL Glucose 109 H (74-99) mg/dL Cholesterol 205 H (<200) mg/dL LDL Cholesterol, Calc 129 H (0-99) mg/dL Thrombosis Risk Factor Assmnt - Choose All That Apply Any of the Below Risk Factors Present?: Yes Each Factor Represents 1 point: Obesity (BMI >25) Other Risk Factors: Yes Each Risk Factor Represents 3 Points: Elevated anticardiolipin antibodies Other congenital or acquired thrombophilia - If yes, enter type in comment: No Thrombosis Risk Factor Assessment Total Risk Factor Score: 4 Thrombosis Risk Factor Assessment Level: Moderate Risk
--- NOTE | 2020-06-01 23:35 | P.DS ---
Providers Date of admission: 05/31/20 14:15 Expected date of discharge: 06/01/20 Attending physician: Jesus Tenorio Consults: 05/31/20 14:15 Consult Physician Routine Consulting Provider: Neil Reyes Consult Reason/Comments: dizziness Do you want consulting provider notified?: Yes Consult Physician Urgent Consulting Provider: Elías Marks Consult Reason/Comments: Dizziness and EKG changes Do you want consulting provider notified?: Yes Primary care physician: Carlos Stafford MD Hospital Course: Chief Complaint: He is tired History of presenting complaint: This is a very pleasant [address] stafford. Chronic stable medical conditions include BPH, hyperlipidemia, hypothyroid. Patient's had left partial pneumonectomy about 6 years ago for lung cancer. Follow-up has been on negative. Patient now presents with getting easily tired. For example carrying birdseed etc. He has to sit down. And catches his breath. Denies any swelling of the legs. No cough or sputum. No obvious chest pain or palpitation. Symptoms are not positional. The symptoms have been going on for about 2 weeks. He had gone to see his PCP. He saw some EKG changes and therefore sent him to the ER. Patient's troponins were negative. Patient was seen by neurology. They felt patient may have had a BPPV. No further testing by gynecology. Chest CTA was negative for PE. Patient should have a stress test as outpatient . We'll have the patient follow-up with cardiology. I started the patient on amlodipine for his blood pressure. Patient may need an outpatient pulmonary consultation to. If symptoms persist. Past medical history to include: Left lung cancer localized with partial pneumonectomy about 6 years ago, BPH, hyperlipidemia, hypothyroid Social history: . Does not smoke. Alcohol: Weekends. Physical examination: VITAL SIGNS: 97.8, 60, 16, 159 with 76, 98% room air GENERAL: Average built, sitting up, comfortable. EYES: Pupils equal. Conjunctiva normal. HEENT: External appearance of nose and ears normal, oral cavity grossly normal somewhat of hearing. NECK: JVD not raised; masses not palpable. HEART: First and second heart sounds are normal; no edema. LUNGS:[ Respiratory rate normal; decreased breath sounds. ABDOMEN: Soft, nontender, liver spleen not palpable, no masses palpable. PSYCH: Alert and oriented x3; mood and affect normal. INVESTIGATIONS, reviewed in the clinical context: White count 8.4 hemoglobin 15.8 platelets 199 potassium 4.7 bun 25 creatinine 0.56 Troponin I 3 negative LDL 129 TSH 13.8 B12 430 EKG tracing personally reviewed by me-right bundle-branch block Computed tomography scan brain-unremarkable Chest x-ray film personally reviewed by me-possibly scarring Chest CTA-negative for PE. Hyperinflation. Pulmonary arterial hypertension. Coronary calcification 2-D echocardiogram-EF 55-60%. Assessment: -2 weeks ago and short of breath with exertion. PE to rule out. Possible COPD. -Possible Secondary pulmonary hypertension -BPH -Hyperlipidemia -Hypothyroid -Possible outpatient stress test with cardiology. Disposition: Home Patient Condition at Discharge: Stable Plan - Discharge Summary Discharge Rx Participant: No New Discharge Prescriptions: New Chlorthalidone 25 mg PO DAILY #30 tab amLODIPine [Norvasc] 5 mg PO DAILY #30 tab Continue Tamsulosin HCl [Flomax] 0.4 mg PO DAILY Pravastatin Sodium [Pravachol] 40 mg PO DAILY Levothyroxine Sodium [Synthroid] 50 mcg PO DAILY Cholecalciferol [Vitamin D3 (25 Mcg = 1000 Iu)] 25 mcg PO DAILY Ascorbic Acid [Vitamin C] 500 mg PO DAILY Discharge Medication List Ascorbic Acid [Vitamin C] 500 mg PO DAILY 05/31/20 [History] Cholecalciferol [Vitamin D3 (25 Mcg = 1000 Iu)] 25 mcg PO DAILY 05/31/20 [History] Levothyroxine Sodium [Synthroid] 50 mcg PO DAILY 05/31/20 [History] Pravastatin Sodium [Pravachol] 40 mg PO DAILY 05/31/20 [History] Tamsulosin HCl [Flomax] 0.4 mg PO DAILY 05/31/20 [History] Chlorthalidone 25 mg PO DAILY #30 tab 06/01/20 [Rx] amLODIPine [Norvasc] 5 mg PO DAILY #30 tab 06/01/20 [Rx] Follow up Appointment(s)/Referral(s): Timothy Alfaro MD [STAFF PHYSICIAN] - 06/10/20 9:30 am Carlos Stafford MD [Primary Care Provider] - 06/04/20 2:30 pm Patient Instructions/Handouts: Dizziness (ED), Dizziness (GEN) Discharge Disposition: HOME SELF-CARE
[2020-06-02] MEDS ORDERED: PRAVASTATIN SODIUM 40 MG TAB PO SCH (09:00)
== END 2020-06-01 17:15 | disposition home or self-care (01) ==
LOC: EC 12:09 → 6NMEDSUR 14:15
PROVIDERS: ADMIT Hospitalist; ATTEND Hospitalist
DX: R42 Dizziness and giddiness (principal); R06.09 Other forms of dyspnea; I45.3 Trifascicular block; R94.31 Abnormal electrocardiogram [ECG] [EKG]; E78.5 Hyperlipidemia, unspecified; E03.9 Hypothyroidism, unspecified; N40.0 Benign prostatic hyperplasia without lower urinary tract symptoms; M50.223 Other cervical disc displacement at C6-C7 level; E66.9 Obesity, unspecified; Z68.29 Body mass index [BMI] 29.0-29.9, adult; H91.90 Unspecified hearing loss, unspecified ear; Z79.82 Long term (current) use of aspirin; Z79.890 Hormone replacement therapy; Z79.899 Other long term (current) drug therapy; Z85.118 Personal history of other malignant neoplasm of bronchus and lung; Z90.2 Acquired absence of lung [part of]; Z87.891 Personal history of nicotine dependence; Z80.1 Family history of malignant neoplasm of trachea, bronchus and lung; I25.10 Atherosclerotic heart disease of native coronary artery without angina pectoris; D35.02 Benign neoplasm of left adrenal gland; R00.1 Bradycardia, unspecified
CPT/HCPCS: 99285; 36415; 93005 ×2; 84439; 84481; 80061; 80053; 82607; 82746; 83735; 84443; 84484; 85025; 85610; 85730; 71046; 93880; 70450; 71275; G0378 ×2; C8929; Q9950; Q9967; 93306

== ENCOUNTER → 2020-08-11 | Outpatient (CLI) | payer MEDICARE ==
[2020-08-11 10:52] LABS: African American GFR (CKD) >90 (>60 ml/min/1.73 sqM); Blood Urea Nitrogen 28 mg/dL (9-20); Non-African American GFR(CKD) 86 (>60 ml/min/1.73 sqM)
--- NOTE | 2020-08-11 13:25 | CT ---
EXAMINATION TYPE: CT chest w con DATE OF EXAM: 08/11/2020 COMPARISON: 06/01/2020 HISTORY: Lung Cancer CT DLP: 371.00 mGycm, Automated exposure control for dose reduction was used. CONTRAST: Performed injected with 100 ml mL of Isovue 300. TECHNIQUE: Axial images were obtained at 5 mm thick sections. Reconstructed images are reviewed on [employer] computer in the coronal plane. FINDINGS: Portion of the thyroid visualized is normal. No suspicious lung nodules or focal infiltrates are present. No enlarged mediastinal or hilar adenopathy is evident. The ascending aorta diameter at the level o f the main pulmonary artery is 3.6 cm. The main pulmonary artery diameter at the bifurcation is 2.6 cm. Coronary artery calcification appears to be present. There is vascular callus patient within the aorta. Limited CT sections are obtained through the upper abdomen. Left adrenal gland is enlarged measuring 3.3 cm. This was present previously. Cyst is extending from the medial aspect of the left kidney. IMPRESSIONS: 1. No suspicious changes to suggest metastatic or recurrent lung cancer within the thorax. 2. Stable appearance of the enlarged left adrenal gland
== END | disposition home or self-care (01) ==
LOC: RADCTMAIN 10:04
PROVIDERS: ATTEND Internal Medicine Hematology & Oncology
DX: C34.90 Malignant neoplasm of unspecified part of unspecified bronchus or lung (principal); E27.8 Other specified disorders of adrenal gland
CPT/HCPCS: 82565; 84520; 71260; 36415; Q9967

== ENCOUNTER → 2020-12-06 | Outpatient (CLI) | payer MEDICARE ==
[2020-12-06 14:36] LABS: Basophils % (A) 1 %; Eosinophils # (A) 0.1 k/uL (0-0.7); Eosinophils % (A) 1 %; HCT 46.1 % (39.0-53.0); HGB 15.7 gm/dL (13.0-17.5); Lymphocytes # (A) 1.7 k/uL (1.0-4.8); Lymphocytes % (A) 20 %; MCH 31.1 pg (25.0-35.0); MCV 91.4 fL (80.0-100.0); Monocytes # (A) 0.7 k/uL (0-1.0); Monocytes % (A) 8 %; Neutrophils # (A) 5.8 k/uL (1.3-7.7); Neutrophils % (A) 69 %; Platelet Count 240 k/uL (150-450); RBC 5.04 m/uL (4.30-5.90); RDW 12.7 % (11.5-15.5); WBC 8.4 k/uL (3.8-10.6)
[2020-12-06 14:52] LABS: African American GFR (CKD) >90 (>60 ml/min/1.73 sqM); Anion Gap 7 mmol/L; Blood Urea Nitrogen 21 mg/dL (9-20); Calcium 9.2 mg/dL (8.4-10.2); Carbon Dioxide 25 mmol/L (22-30); Chloride 105 mmol/L (98-107); Glucose 103 mg/dL (74-99); Non-African American GFR(CKD) 89 (>60 ml/min/1.73 sqM); Potassium 4.5 mmol/L (3.5-5.1); Sodium 137 mmol/L (137-145)
== END | disposition home or self-care (01) ==
LOC: LABPAT 13:57
PROVIDERS: ATTEND Urology
DX: Z01.812 Encounter for preprocedural laboratory examination (principal); R33.9 Retention of urine, unspecified
CPT/HCPCS: 36415; 80048; 85025

== ENCOUNTER 2020-12-09 09:50 | Day surgery (SDC) | payer MEDICARE ==
[2020-12-07 13:23] VITALS: BMI 30.7
--- NOTE | 2020-12-09 08:50 | P.HPIHPCON ---
History of Present Illness H&P Date: 12/09/20 This is an 85-year-old male with history of chronic urinary retention, he has failed multiple trial of voids. He underwent a transrectal ultrasound that showed evidence of 114 g prostate. Discussed with him given the size of his prostate the 2 options would be robotic prostatectomy, versus the HoLEP. The risk and benefit of each approach was discussed . He agreed to proceed with a robotic simple prostatectomy. Discussed with him the risk which includes but not limited to bleeding, infection, persistent urinary retention, urinary incontinence, injury to nearby organs. Discussed also with him risk from anesthesia which includes but not limited to heart attack, strokes, prolonged hospitalization, blood clots, and even loss of life. His preoperative urine culture was positive, and he is currently on antibiotics for that Consent for Procedure: I have explained the operation/procedure to the patient, including the risks, benefits, side effects, alternative therapies (including not receiving the proposed treatment or service), the likelihood of the patient achieving his/her goals, and potential recuperation problems for the procedure/sedation/analgesia, as well as any blood products, if indicated. I also explained to the patient the risks, benefits and side effects of the alternatives, as well as the risks related to not receiving the proposed procedure, care, treatment, or services. Past Medical History Past Medical History: Cancer, Hyperlipidemia, Prostate Disorder, Thyroid Disorder Additional Past Medical History / Comment(s): Collapsed Lung, Mass in Lung, lung cancer with radiation History of Any Multi-Drug Resistant Organisms: None Reported Past Surgical History: Orthopedic Surgery Additional Past Surgical History / Comment(s): Hemhorriodectomy, lung surgery, arthroscopic knee Past Anesthesia/Blood Transfusion Reactions: No Reported Reaction Smoking Status: Former smoker - Past Family History Mother Family Medical History: Cancer Additional Family Medical History / Comment(s): Lung cancer Medications and Allergies Home Medications Medication Instructions Recorded Confirmed Type Ascorbic Acid [Vitamin C] 500 mg PO DAILY 05/31/20 12/07/20 History Cholecalciferol [Vitamin D3 (25 25 mcg PO DAILY 05/31/20 12/07/20 History Mcg = 1000 Iu)] Levothyroxine Sodium [Synthroid] 50 mcg PO DAILY 05/31/20 12/07/20 History Pravastatin Sodium [Pravachol] 40 mg PO DAILY 05/31/20 12/07/20 History Tamsulosin HCl [Flomax] 0.4 mg PO DAILY 05/31/20 12/07/20 History Finasteride [Proscar] 5 mg PO DAILY 12/07/20 12/07/20 History Allergies Allergy/AdvReac Type Severity Reaction Status Date / Time No Known Allergies Allergy Verified 12/07/20 13:11 Surgical - Exam - General no distress, no pain - Eyes PERRL, normal ocular movement - ENT normal nares, normal mucosa - Respiratory normal expansion, normal respiratory effort - Abdomen Abdomen: soft, non tender Assessment and Plan Assessment: OR for robotic simple prostatectomy
[~2020-12-09 09:50] MED LIST: DEXAMETHASONE SOD PHOSPHATE 4 MG/ML 1 ML VIAL IV ONE; HEPARIN SODIUM,PORCINE/PF 5,000 UNIT/0.5 ML SYRINGE SQ PRN; LIDOCAINE 1% (10MG/ML) FOR IV START INTRADERMA PRN; MIDAZOLAM 2 MG/2 ML VIAL IV PRN; ONDANSETRON 4 MG/2 ML VIAL IVP ONE; fentaNYL (PF) 50 MCG/ML 2 ML AMP IVP PRN
[2020-12-09] MEDS: LACTATED RINGERS 1,000 ML IV SCH ×2 (10:26→10:30)
[2020-12-09 10:35] VITALS: RESP 16; TEMP 98.1
[2020-12-09] MEDS ORDERED: ONDANSETRON 4 MG/2 ML VIAL ONE (10:36)
[2020-12-09] MEDS ORDERED: LIDOCAINE 2% (PF) 20 MG/ML 5 ML VIAL ONE (10:37)
[2020-12-09] MEDS ORDERED: MIDAZOLAM 2 MG/2 ML VIAL IV ONE (11:03)
[2020-12-09 11:22] VITALS: BP 138/70; PULSE 68
--- NOTE | 2020-12-10 10:50 | P.ANPRN ---
Procedure Note - Anesthesia - Nerve Block Performed Bilateral Erector Spinae Single Time Out Performed: Yes Date of Procedure: 12/09/20 Procedure Start Time: 11:03 Procedure Stop Time: 11:13 Location of Patient: PreOp Indication: Acute Post-Operative Pain, Requested by Surgeon Sedation Type: Sedate with meaningful contact maintained Preparation: Sterile Prep Position: Prone Needle Types: Pajunk Needle Gauge: 21 Ultrasound used to visualize needle placement: Yes Ultrasound used to observe medication spread: Yes Blood Aspirated: No Pain Paresthesia on Injection Noted: No Resistance on Injection: Normal Image Stored and Saved: Yes Events: Uneventful and Well Tolerated (ropi .5% 15cc plus xylo 1.5% 15cc bilaterally at L1)
== END 2020-12-09 14:06 | disposition home or self-care (01) ==
LOC: UNDOADMIN 09:50 → OR 09:50 → 2ORMAIN 09:50 → EDSTATUS 11:55 → OR 14:06 → UNDODISIN 14:06
PROVIDERS: ATTEND Urology
DX: R33.9 Retention of urine, unspecified (principal); Z53.8 Procedure and treatment not carried out for other reasons
CPT/HCPCS: 86900; 86901; 86850; J2250; J1100; J2405; J1644

== ENCOUNTER → 2020-12-27 | Outpatient (CLI) | payer MEDICARE ==
[2020-12-27 12:33] LABS: Bacteria,Urine Occasional /hpf; Mucus,Urine Rare /hpf; RBC,Urine 17 /hpf (0-5)
[2020-12-27 12:44] LABS: Appearance,Urine Clear (Clear); Bilirubin,Urine Negative (Negative); Blood,Urine Trace (Negative); Color,Urine Yellow; Glucose,Urine (UA) Negative (Negative); Ketones,Urine Negative (Negative); Leukocyte Esterase,Urine Moderate (Negative); Nitrite,Urine Positive (Negative); PH, Urine 7.5 (5.0-8.0); Protein,Urine Negative (Negative); Specific Gravity,Urine 1.019 (1.001-1.035); Squamous Epithelial Cell,Urine <1 /hpf (0-4); Urobilinogen,Urine <2.0 mg/dL (<2.0)
[2020-12-27 12:45] LABS: WBC,Urine 46 /hpf (0-5)
[2020-12-27 19:03] LABS: Basophils # (A) 0.05 X 10*3/uL (0.00-0.10); Basophils % (A) 0.8 %; Eosinophils # (A) 0.13 X 10*3/uL (0.04-0.35); Eosinophils % (A) 2.1 %; HCT 44.4 % (39.6-50.0); HGB 14.9 g/dL (13.0-17.0); Lymphocytes % (A) 20.9 %; MCHC 33.6 g/dL (32.0-37.0); MCV 92.3 fL (80.0-97.0); Mean Platelet Volume 10.6 fL (9.5-12.2); Monocytes # (A) 0.57 X 10*3/uL (0.20-1.00); Monocytes % (A) 9.2 %; Neutrophils # (A) 4.09 X 10*3/uL (1.80-7.70); Neutrophils % (A) 65.7 %; Platelet Count 220 X 10*3/uL (140-440); RBC 4.81 X 10*6/uL (4.40-5.60); RDW 12.8 % (11.5-14.5); WBC 6.22 X 10*3/uL (4.50-10.00)
[2020-12-27 23:52] LABS: African American GFR (CKD) 101.1 (60.0-200.0); Anion Gap 8.1 mmol/L (4.00-12.00); Calcium 8.6 mg/dL (8.7-10.3); Carbon Dioxide 24.9 mmol/L (21.6-31.8); Non-African American GFR(CKD) 87.3 (60.0-200.0); Potassium 4.5 mmol/L (3.5-5.5)
== END | disposition home or self-care (01) ==
LOC: LABWHC1 11:05
PROVIDERS: ATTEND Urology
DX: Z01.812 Encounter for preprocedural laboratory examination (principal); N39.0 Urinary tract infection, site not specified; R33.9 Retention of urine, unspecified; R31.0 Gross hematuria
CPT/HCPCS: 36415; 80048; 81001; 85025; 87086

== ENCOUNTER 2021-01-06 05:58 | Inpatient (IN) | payer MEDICARE ==
[2020-12-30 12:01] VITALS: BMI 29.2
--- NOTE | 2020-12-31 15:50 | P.HPIHPCON ---
History of Present Illness H&P Date: 12/31/20 Chief Complaint: urinary retention This is an 85-year-old male with history of chronic urinary retention, he has failed multiple trial of voids. He underwent a transrectal ultrasound that showed evidence of 114 g prostate. Discussed with him given the size of his prostate the 2 options would be robotic prostatectomy, versus the HoLEP. The risk and benefit of each approach was discussed . He agreed to proceed with a robotic simple prostatectomy. Discussed with him the risk which includes but not limited to bleeding, infection, persistent urinary retention, urinary incontinence, injury to nearby organs. Discussed also with him risk from anesthesia which includes but not limited to heart attack, stroke, prolonged hospitalization, blood clots, and even loss of life. His preoperative urine culture was positive, and he is currently on antibiotics for that Consent for Procedure: I have explained the operation/procedure to the patient, including the risks, benefits, side effects, alternative therapies (including not receiving the pro posed treatment or service), the likelihood of the patient achieving his/her goals, and potential recuperation problems for the procedure/sedation/analgesia, as well as any blood products, if indicated. I also explained to the patient the risks, benefits and side effects of the alternatives, as well as the risks related to not receiving the proposed procedure, care, treatment, or services. Past Medical History Past Medical History: Cancer, Hyperlipidemia, Prostate Disorder, Thyroid Disorder Additional Past Medical History / Comment(s): hx collapsed Lung, hx lung cancer, has indwelling catheter, UTI-on Rx, History of Any Multi-Drug Resistant Organisms: None Reported Past Surgical History: No Surgical Hx Reported Additional Past Surgical History / Comment(s): Hemhorriodectomy, lung sugery, anila cataracts Past Anesthesia/Blood Transfusion Reactions: No Reported Reaction Smoking Status: Former smoker - Past Family History Mother Family Medical History: Cancer Additional Family Medical History / Comment(s): Lung cancer Medications and Allergies Home Medications Medication Instructions Recorded Confirmed Type Ascorbic Acid [Vitamin C] 500 mg PO DAILY 05/31/20 12/30/20 History Cholecalciferol [Vitamin D3 (25 25 mcg PO DAILY 05/31/20 12/30/20 History Mcg = 1000 Iu)] Levothyroxine Sodium [Synthroid] 50 mcg PO DAILY 05/31/20 12/30/20 History Pravastatin Sodium [Pravachol] 40 mg PO DAILY 05/31/20 12/30/20 History Antibiotic(Name Unknown) 1 tab PO TID 12/30/20 12/30/20 History Allergies Allergy/AdvReac Type Severity Reaction Status Date / Time No Known Allergies Allergy Verified 12/30/20 11:50 Surgical - Exam - General no distress, no pain - Respiratory normal expansion, normal respiratory effort - Abdomen Abdomen: soft, non tender Assessment and Plan Assessment: 85-year-old male with history of urinary retention -Or for robotic simple prostatectomy
[~2021-01-06 05:58] MED LIST changes: -DEXAMETHASONE SOD PHOSPHATE 4 MG/ML 1 ML VIAL IV ONE; -LIDOCAINE 1% (10MG/ML) FOR IV START INTRADERMA PRN; -MIDAZOLAM 2 MG/2 ML VIAL IV PRN; -ONDANSETRON 4 MG/2 ML VIAL IVP ONE; -fentaNYL (PF) 50 MCG/ML 2 ML AMP IVP PRN
[2021-01-06] MEDS ORDERED: LACTATED RINGERS 1,000 ML IV SCH (06:00)
[2021-01-06] MEDS ORDERED: ONDANSETRON 4 MG/2 ML VIAL IVP ONE (06:00)
[2021-01-06] MEDS ORDERED: LIDOCAINE 1% (10MG/ML) FOR IV START INTRADERMA PRN (06:00)
[2021-01-06] MEDS ORDERED: MIDAZOLAM 2 MG/2 ML VIAL IV PRN (06:00)
[2021-01-06] MEDS ORDERED: DEXAMETHASONE SOD PHOSPHATE 4 MG/ML 1 ML VIAL IV ONE (06:00)
[2021-01-06] MEDS ORDERED: fentaNYL (PF) 50 MCG/ML 2 ML AMP IV PRN (07:00)
[2021-01-06] MEDS ORDERED: HYDROmorphone 0.5 MG/0.5 ML SYRINGE IVP PRN (07:00)
[2021-01-06] MEDS ORDERED: ROCURONIUM 10 MG/ML (5 ML VIAL) IV ONE (07:35)
[2021-01-06] MEDS ORDERED: fentaNYL (PF) 50 MCG/ML 2 ML AMP ONE ×2 (07:35→12:21)
[2021-01-06] MEDS ORDERED: LIDOCAINE 1% INJ 10MG/ML (20 ML MDV) ONE ×2 (07:35→12:21)
[2021-01-06] MEDS ORDERED: PROPOFOL 10 MG/ML 20 ML VIAL IV ONE ×2 (07:35→12:21)
[2021-01-06] MEDS ORDERED: LIDOCAINE 2%-EPI 1:100,000 20 ML VIAL ONE ×2 (07:35→12:21)
[2021-01-06] MEDS ORDERED: SUCCINYLCHOLINE CHLORIDE 100 MG/5 ML SYR IV ONE (07:35)
[2021-01-06] MEDS ORDERED: LACTATED RINGERS 1,000 ML IV ONE (07:35)
[2021-01-06] MEDS ORDERED: ROPIVACAINE 5 MG/ML 30 ML VIAL ONE ×2 (07:35→12:21)
[2021-01-06] MEDS ORDERED: GLYCOPYRROLATE 0.2 MG/ML 2 ML VIAL ONE (07:35)
[2021-01-06] MEDS ORDERED: ONDANSETRON 4 MG/2 ML VIAL ONE (07:35)
[2021-01-06] MEDS ORDERED: NEOSTIGMINE 1 MG/ML 10 ML VIAL ONE (07:35)
[2021-01-06] MEDS ORDERED: ONDANSETRON 4 MG/2 ML VIAL IVP PRN (07:53)
[2021-01-06] MEDS ORDERED: HYDROcodone/APAP 5-325MG 1 EACH TAB PO PRN (07:55)
[2021-01-06] MEDS ORDERED: BUPIVACAINE (PF) 0.25% 30 ML VIAL SQ ONE (11:40)
[2021-01-06] MEDS ORDERED: MIDAZOLAM 2 MG/2 ML VIAL ONE (12:21)
--- NOTE | 2021-01-06 13:40 | P.OP ---
Date of Procedure: 01/06/21 Preoperative Diagnosis: BPH, urinary retention Postoperative Diagnosis: Same Procedure(s) Performed: Robotic-assisted laparoscopic simple prostatectomy Implants: None Anesthesia: NEDA Surgeon: Jeff Hawkins Wood Tank Builder #1: Kym Koroma Estimated Blood Loss (ml): 200 Pathology: other (Prostate adenoma) Condition: stable Disposition: PACU Indications for Procedure: This is an 85-year-old male with history of chronic urinary retention, he has failed multiple trial of voids. He underwent a transrectal ultrasound that showed evidence of 114 g prostate. Discussed with him given the size of his prostate the 2 options would be robotic prostatectomy, versus the HoLEP. The risk and benefit of each approach was discussed . He agreed to proceed with a robotic simple prostatectomy. Discussed with him the risk which includes but not limited to bleeding, infection, persistent urinary retention, urinary incontinence, injury to nearby organs. Discussed also with him risk from anesthesia which includes but not limited to heart attack, stroke, prolonged hospitalization, blood clots, and even loss of life. His preoperative urine culture was positive, and he is currently on antibiotics for that Operative Findings: Trilobar hyperplasia Description of Procedure: After preoperative antibiotics were started, the patient was taken to the operating room. Anesthesia was induced and the patient was placed in a supine position with adequate padding of the pressure points, shoulders, back, legs and arms. He was then prepped and draped in the standard fashion. A critical pause was performed using two patient identifiers. A 16F fry catheter was placed to gravity drainage. a supraumbilical incision was made superior to the umbilicus, insufflation was obtained using a Veress needle, after insufflation was obtained a 8mm robotic port was placed. Under direct vision a 8mm robotic ports was placed lateral to each rectus slightly below the camera port. The left iliac fossa 8mm port was placed. The right orthodontist assistant right iliac fossa 12mm port and right paramedian 5mm port were placed. After the patient was placed in the trendelenberg position, the robot was then docked to the 8mm robotic ports and then each robotic arm and tower was checked in relation to the patient's legs and hands to avoid inadvertent compression. The peritoneal cavity was inspected. Adhesions were taken down sharply along the left lower quadrant An inverted U-shaped incision began laterally to the left medial umbilical ligament and extended high across the midline to the right umbilical ligament. The limbs of the "U" extended to the level of the vasa on both sides. We next developed the preperitoneal space and the space of Retzius. of note patient had inuginal hernia along the right sided. Cautery was used to dissected the bladder away from the prostate, the incision was made in close proximity to the prostate, and incision was extended laterally and at this point the plane between the adenoma and the surgical capsule is identified. The posterior bladder neck was then incised, both ureteral orifices were visualized, and neither were injured The adenoma was dissected off of the capsule by combination of blunt dissection and minimum cautery. dissection was initially started along the posterior surface and this was carried laterally. The dissection was carried to the apex, at this point the urethral-prostatic junction was visualized and the prostate was transected at the junction. Prostate adenoma was placed in an endocatch bag . A 9and 9inch 3-0 V-Lock suture was used to anastomose the urethra and bladder, starting at the 6:00 posterior position. Mucosa was secured in every stitch, to ensure a mucosa to mucosa anastomosis. The stitch was regularly cinched and the anastomosis tightened. The 20 Fr Fry catheter was advanced, the bladder filled, and the anastomosis was tested. Anastomsis was watertight at 150 mL. balloon was inflated to 20 mL The robot was undocked. specimen was extracted from the supraumbilical incision. The periumbilical fascia was closed with 1-0-PDS suture in running fashion. All ports were closed with a subcuticular 4-0 monocryl and Dermabond. Sponge, instrument, and needle counts were correct at the end of the case x2. The patient tolerated the surgery well and without complication. He awoke without difficulty and was taken to the recovery room in stable condition
[2021-01-06] MEDS: KETOROLAC 15 MG/ML 1 ML VIAL IVP SCH ×2 (14:29→17:04)
[2021-01-06] MEDS: PRAVASTATIN SODIUM 40 MG TAB PO SCH (15:05)
[2021-01-06] MEDS ORDERED: LEVOFLOXACIN 500MG-D5W PMX 500 MG in DEXTROSE/WATER 1 100ML.BAG IVPB SCH (16:00)
[2021-01-06] MEDS: D5-0.45% NACL WITH KCL 20MEQ/L 1,000 ML IV SCH (16:27)
[2021-01-07] MEDS: KETOROLAC 15 MG/ML 1 ML VIAL IVP SCH ×3 (00:31→12:18)
[2021-01-07] MEDS: D5-0.45% NACL WITH KCL 20MEQ/L 1,000 ML IV SCH ×2 (00:34→08:06)
[2021-01-07] MEDS ORDERED: LEVOTHYROXINE 50 MCG TAB PO SCH (06:30)
[2021-01-07] MEDS: PRAVASTATIN SODIUM 40 MG TAB PO SCH (08:00)
--- NOTE | 2021-01-07 08:18 | P.ANPRN ---
Procedure Note - Anesthesia - Nerve Block Performed Bilateral Erector Spinae Single Time Out Performed: Yes Date of Procedure: 01/07/21 Procedure Start Time: :17 Procedure Stop Time: : Location of Patient: PreOp Indication: Acute Post-Operative Pain, Requested by Surgeon Sedation Type: Sedate with meaningful contact maintained Preparation: Sterile Prep Position: Prone Needle Types: Pajunk Needle Gauge: 21 Ultrasound used to visualize needle placement: Yes Ultrasound used to observe medication spread: Yes Blood Aspirated: No Pain Paresthesia on Injection Noted: No Resistance on Injection: Normal Image Stored and Saved: Yes Events: Uneventful and Well Tolerated (Ropivacaine 0.5% 15 mL plus Xylocaine 1/2% with epi 15 mL given bilaterally at L3)
--- NOTE | 2021-01-07 09:03 | P.DS ---
Providers Date of admission: 01/06/21 05:58 Expected date of discharge: 01/07/21 Attending physician: Jeff Hawkins MD Primary care physician: Carlos Stafford MD Hospital Course: On the day of admission, the patient underwent an uncomplicated robotic-assisted laparoscopic simple prostatectomy. The perioperative course was unremarkable. He remained afebrile with stable vital signs. On the first postoperative day, he was comfortable and tolerating diet. The incisions were clean, dry, and intact. The Stringer catheter was draining clear yellow urine. Procedures: Robotic-assisted laparoscopic simple prostatectomy on 01/06/2021. Patient Condition at Discharge: Good Plan - Discharge Summary Discharge Rx Participant: No New Discharge Prescriptions: New Ciprofloxacin HCl [Cipro] 250 mg PO Q12HR #6 tablet Ketorolac [Toradol] 10 mg PO Q6HR PRN #12 tab PRN Reason: Mild To Moderate Pain HYDROcodone/APAP 5-325MG [[place] 5-325] 1 - 2 tab PO Q4HR PRN #6 tab PRN Reason: Severe Breakthrough Pain No Action Pravastatin Sodium [Pravachol] 40 mg PO DAILY Levothyroxine Sodium [Synthroid] 50 mcg PO DAILY Cholecalciferol [Vitamin D3 (25 Mcg = 1000 Iu)] 25 mcg PO DAILY Ascorbic Acid [Vitamin C] 500 mg PO DAILY Antibiotic(Name Unknown) 1 tab PO TID Discharge Medication List Ascorbic Acid [Vitamin C] 500 mg PO DAILY 05/31/20 [History] Cholecalciferol [Vitamin D3 (25 Mcg = 1000 Iu)] 25 mcg PO DAILY 05/31/20 [History] Levothyroxine Sodium [Synthroid] 50 mcg PO DAILY 05/31/20 [History] Pravastatin Sodium [Pravachol] 40 mg PO DAILY 05/31/20 [History] Antibiotic(Name Unknown) 1 tab PO TID 12/30/20 [History] Ciprofloxacin HCl [Cipro] 250 mg PO Q12HR #6 tablet 01/07/21 [Rx] HYDROcodone/APAP 5-325MG [[place] 5-325] 1 - 2 tab PO Q4HR PRN #6 tab 01/07/21 [Rx] Ketorolac [Toradol] 10 mg PO Q6HR PRN #12 tab 01/07/21 [Rx] Follow up Appointment(s)/Referral(s): Jeff Hawkins MD [STAFF PHYSICIAN] - 01/18/21 Activity/Diet/Wound Care/Special Instructions: Discharge home with Stringer catheter connected to urinary leg bag. Okay to shower. Diet as tolerated. No lifting, driving, or strenuous activity. Reassure patient that abdominal wall ecchymosis and penoscrotal swelling are normal. Instruct patient to begin taking antibiotics one day prior to Stringer catheter removal. Discharge Disposition: HOME SELF-CARE
[2021-01-07 12:43] VITALS: BP 135/70; PULSE 60; RESP 16; TEMP 98.1
== END 2021-01-07 14:01 | disposition home or self-care (01) | DRG 718 ==
LOC: 2ORMAIN 05:58 → 4SSUR 14:20
PROVIDERS: ADMIT Urology; ATTEND Urology
PROC: 8E0W4CZ Robotic Assisted Procedure of Trunk Region, Percutaneous Endoscopic Approach (ICD-10-PCS; 2021-01-06)
PROC: 0VB04ZZ Excision of Prostate, Percutaneous Endoscopic Approach (ICD-10-PCS; principal; 2021-01-06 07:30)
DX: N40.1 Benign prostatic hyperplasia with lower urinary tract symptoms (principal); R33.8 Other retention of urine; E78.5 Hyperlipidemia, unspecified; Z87.891 Personal history of nicotine dependence; Z85.118 Personal history of other malignant neoplasm of bronchus and lung
CPT/HCPCS: 64999; 86850; 86900; 86901; 88305; 88307

== ENCOUNTER → 2021-08-30 | Outpatient (CLI) | payer MEDICARE ==
--- NOTE | 2021-08-30 19:39 | CT ---
EXAMINATION TYPE: CT chest wo con CT DLP: 387.50 mGycm, Automated exposure control for dose reduction was used. DATE OF EXAM: 08/30/2021 1:32 PM COMPARISON: Multiple CTs of the chest with most recent on 08/11/2020. CLINICAL INDICATION:Male, 86 years old with history of C34.90 LUNG CANCER, Lung Cancer, status post l eft lobectomy. TECHNIQUE: Multiple axial images were obtained through the chest without IV contrast. Lack of IV or o ral contrast limits evaluation of solid and hollow organ viscera. FINDINGS: LUNGS/ PLEURA: Post surgical changes without significant change in scarring within the left lung. No evidence of recurrence are suspicious pulmonary nodule. No evidence of focal consolidation, pneumotho rax or pleural effusion. There is streaky atelectasis/scarring within the lung bases, lingula and adj acent to the vertebral body spurring within the right lower lobe. AIRWAY: Postsurgical changes to the left lung airways. The remainder of the airways are patent. HEART: Size within normal limits.Coronary artery atherosclerosis changes. MEDIASTINUM: No gross evidence of adenopathy. VASCULATURE: No aortic aneurysm. Mild scattered atherosclerosis of the arterial vasculature. MUSCULOSKELETAL: No acute osseous abnormalities. Multilevel disc degeneration changes throughout the spine. Postsurgical changes to the ribs on the left. Stable bony island within within the T12 and T5 vertebral bodies. SOFT TISSUES/LYMPH NODES: Unremarkable. LOWER NECK: No significant findings. 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 IMPRESSION: 1. No evidence for recurrence or metastatic disease. 2. Moderate to severe coronary artery atherosclerosis. 3. Stable intra-abdominal left adrenal lesions and left renal cyst.
== END | disposition home or self-care (01) ==
LOC: RADCTMAIN 13:12
PROVIDERS: ATTEND Internal Medicine Hematology & Oncology
DX: N28.1 Cyst of kidney, acquired (principal); I25.10 Atherosclerotic heart disease of native coronary artery without angina pectoris; E27.8 Other specified disorders of adrenal gland; C34.90 Malignant neoplasm of unspecified part of unspecified bronchus or lung
CPT/HCPCS: 71250

== ENCOUNTER → 2021-11-14 | Outpatient (CLI) | payer MEDICARE ==
[~2021-11-14] MED LIST changes: +BEBTELOVIMAB (EUA) 175 MG/2 ML VIAL IV NR; -HEPARIN SODIUM,PORCINE/PF 5,000 UNIT/0.5 ML SYRINGE SQ PRN; +SODIUM CHLORIDE 0.9% 500 ML 500 ML in EMPTY BAG 1 BAG IV PRN
[2021-11-14 12:32] VITALS: PULSE 50; RESP 18; TEMP 98
[2021-11-14 13:17] VITALS: BP 107/63
== END ==
LOC: PROCWHC3 12:29
PROVIDERS: ATTEND Physician Assistant
DX: U07.1 COVID-19 (principal); E66.9 Obesity, unspecified; Z68.29 Body mass index [BMI] 29.0-29.9, adult; Z87.891 Personal history of nicotine dependence
CPT/HCPCS: Q0222; M0222

== ENCOUNTER → 2022-05-29 | Outpatient (CLI) | payer MEDICARE ==
--- NOTE | 2022-05-29 15:35 | FL ---
EXAMINATION TYPE: FL barium swallow DATE OF EXAM: 05/29/2022 CLINICAL HISTORY: History of left-sided lung cancer with lump in throat and dysphasia when swallowing . Recent negative oropharyngeal endoscopy by ENT. TECHNIQUE: A double contrast esophagram is performed utilizing air and barium. A total of 42 second s of fluoroscopic time was utilized during procedure and 38 images obtained COMPARISON: CT neck July 07, 2019 FINDINGS: The esophagus shows abnormal secondary and tertiary contractions particularly the distal es ophagus. Satisfactory emptying into the stomach is noted. No proximal diverticulum. No obvious proxi mal mass or stricture at area of patient concern lower cervical level. There is a small sliding-type hiatal hernia identified. No significant gastroesophageal reflux was seen during real time performanc e of this study. Elevated left hemidiaphragm correlates with patient's history of left-sided partial pneumonectomy. 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 Small sliding-type hiatal hernia. No obvious mass or stricture.
== END | disposition home or self-care (01) ==
LOC: RADUSWWP 10:06
PROVIDERS: ATTEND Otolaryngology
DX: K22.4 Dyskinesia of esophagus (principal); K44.9 Diaphragmatic hernia without obstruction or gangrene; R13.10 Dysphagia, unspecified
CPT/HCPCS: 74220

== ENCOUNTER → 2022-08-09 | Outpatient (CLI) | payer MEDICARE ==
--- NOTE | 2022-08-09 15:25 | CT ---
EXAMINATION TYPE: CT chest wo con DATE OF EXAM: 08/09/2022 COMPARISON: 08/30/2021 HISTORY: follow up to lung CA CT DLP: 609 mGycm. Automated Exposure Control for Dose Reduction was Utilized. TECHNIQUE: CT scan of the thorax is performed without IV contrast. FINDINGS: LUNGS: There is biapical pleural thickening. There are 1 mm nodules in the right lung apex subpleural axial image 12. Interlobular septal thickening at the lung bases most typical of mild chronic inters titial lung disease and pulmonary fibrosis. No pleural effusion or pneumothorax. No focal pneumonia. Mild emphysematous changes noted. MEDIASTINUM: Lack of IV contrast is noted to limit evaluation for mediastinal and especially hilar ad enopathy. There are no definitive greater than 1 cm hilar or mediastinal lymph nodes. Heart size is n ormal and there is dense coronary artery calcification. Aorta of normal caliber with atherosclerotic changes. OTHER: There is a 3.7 cm left adrenal mass measuring of -17 Hounsfield units suggestive of adrenal ad enoma. There is a simple appearing cyst measuring 5 Hounsfield units and 4.2 cm upper pole left kidne y compatible with benign cyst Bosniak classification I cyst. Hypertrophic and degenerative change of spine. Cannot exclude tiny gallstones or gallbladder sludge. IMPRESSION: 1. No diagnostic evidence of suspicious mass. 1 mm subpleural nodules in the right upper lobe are too small to characterize but likely benign. 2. Dense coronary artery calcification 3. 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 4. No pathologic adenopathy. 5. Question gallbladder sludge or tiny gallstones.
== END | disposition home or self-care (01) ==
LOC: RADCTMAIN 13:07
PROVIDERS: ATTEND Internal Medicine Hematology & Oncology
DX: I25.10 Atherosclerotic heart disease of native coronary artery without angina pectoris (principal); E78.2 Mixed hyperlipidemia; C34.90 Malignant neoplasm of unspecified part of unspecified bronchus or lung; G60.0 Hereditary motor and sensory neuropathy
CPT/HCPCS: 71250

== ENCOUNTER → 2023-08-13 | Outpatient (CLI) | payer MEDICARE ==
--- NOTE | 2023-08-13 11:53 | CT ---
EXAMINATION TYPE: CT chest wo con DATE OF EXAM: 08/13/2023 COMPARISON: 08/09/2022 HISTORY: follow up lung cancer CT DLP: 454.1 mGycm, Automated exposure control for dose reduction was used. CONTRAST: Performed injected with 0 mL of Isovue 300. TECHNIQUE: Axial images were obtained at 5 mm thick sections. Reconstructed images are reviewed on formerly [facility] computer in the coronal plane. FINDINGS: Portion of the thyroid visualized is normal. No suspicious lung nodules or focal infiltrates are present. No suspicious nodules or masses to sugge st recurrent or metastatic lung cancer couple of tiny peripheral nodules appears stable. Example seri es 4 image 12 No enlarged mediastinal or hilar adenopathy is evident. Scattered shotty lymphadenopathy is within t mediastinum. Coronary artery calcification is noted. The ascending aorta diameter at the level of the main pulmonary artery is 3.8 cm. The main pulmonary artery diameter at the bifurcation is 2.[address] sections are obtained through the upper abdomen. There is a 4.7 cm cyst on the posterior m edial left upper renal pole. Left adrenal gland is thickened measuring 2.9 cm and -5 Hounsfield units . IMPRESSION: 1. No suspicious changes to suggest recurrent or metastatic lung cancer. 2. Stable appearing low density left adrenal mass.
== END | disposition home or self-care (01) ==
LOC: RADCTMAIN 11:19
PROVIDERS: ATTEND Internal Medicine Hematology & Oncology
DX: E27.8 Other specified disorders of adrenal gland (principal); C34.90 Malignant neoplasm of unspecified part of unspecified bronchus or lung; E78.2 Mixed hyperlipidemia; G60.0 Hereditary motor and sensory neuropathy; Z71.3 Dietary counseling and surveillance
CPT/HCPCS: 71250

== ENCOUNTER → 2024-08-13 | Outpatient (CLI) | payer MEDICARE ==
--- NOTE | 2024-08-13 13:25 | CT ---
EXAMINATION TYPE: CT chest wo con DATE OF EXAM: 08/13/2024 COMPARISON: 08/13/2023 CLINICAL INDICATION: Male, 89 years old with history of C34.90 Lung ca; [facility], Lung CA. TECHNIQUE: CT scan of the thorax is performed without IV contrast. CT DLP: 446.[address] CTDI: mGy Automated exposure control for dose reduction was used. FINDINGS: There is no suspicious lung mass or nodule. There is no airspace consolidation or abnormal interstitial density. There is no pleural effusion or pneumothorax. The heart and great vessels chest are normal in size. There is no mediastinal, hilar or axillary adenopathy. Limited scanning through the upper abdomen reveals a stable 3.9 cm left adrenal adenoma. There is a stable 7 mm sclerotic density in the T5 dating back to at least 08/11/2020 IMPRESSION: No evidence of recurrent or metastatic disease. No interval change compared to previous. [facility], , 08/13/2024 1:22 PM
== END | disposition home or self-care (01) ==
LOC: RADCTMAIN 12:55
PROVIDERS: ATTEND Internal Medicine Hematology & Oncology
DX: C34.90 Malignant neoplasm of unspecified part of unspecified bronchus or lung (principal); E78.2 Mixed hyperlipidemia; G60.0 Hereditary motor and sensory neuropathy; Z71.3 Dietary counseling and surveillance
CPT/HCPCS: 71250